=== PATIENT | female | born 1975 | race African-American/Black ===

== ENCOUNTER 2016-11-22 15:53 | Emergency (ER) | payer OTHER ==
[~2016-11-22] VITALS: Ht 165.1 cm; Wt 93.0 kg
[2016-11-22 16:01] VITALS: BP 149/89
[2016-11-22] MEDS ORDERED: NAPROXEN 500 MG TABLET PO STA (16:06)
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
[2016-11-22] MEDS ORDERED: TRAM-29 PO (17:00)
[2016-11-22] MEDS ORDERED: METH-38 PO (17:00)
== END 2016-11-22 17:05 | disposition home or self-care (01) ==
LOC: ER 15:53
DX: M54.5 Low back pain (principal); M25.512 Pain in left shoulder; Z88.2 Allergy status to sulfonamides; V49.49XA Driver injured in collision with other motor vehicles in traffic accident, initial encounter; Y93.89 Activity, other specified; Y99.8 Other external cause status; Y92.488 Other paved roadways as the place of occurrence of the external cause
CPT/HCPCS: 72100; 73030; 99284

== ENCOUNTER 2018-04-27 13:55 | Emergency (ER) | payer BC, OTHER ==
[~2018-04-27] VITALS: Ht 162.6 cm; Wt 114.3 kg
[~2018-04-27 13:55] MED LIST: METH-38 PO; TRAM-48 PO
--- NOTE | 2018-04-27 14:51 | PHYS DOC ---
Past Medical History Past Medical History: Anemia, Bronchitis Past Surgical History: Appendectomy Alcohol Use: None Drug Use: None Adult General Chief Complaint Chief Complaint: HEADACHE HPI HPI Patient is a 43 year old female who presents with left-sided headache. Patient reports she was recently diagnosed with migraine headaches. She states this headache started during the night. She was prescribed Fioricet and took one at about 4 AM this morning without relief. She reports nausea without vomiting. She denies any fever or chills. The pain seems to start at the base of the head on the left and radiates up to her forehead and down toward her shoulder. She denies any injury. She reports she is sensitive to light. Review of Systems Review of Systems Constitutional: Denies fever or chills [] Eyes: Reports photophobia. Denies blurred or double vision Respiratory: Denies cough or shortness of breath [] Cardiovascular: No additional information not addressed in HPI [] GI: Denies abdominal pain and vomiting. Reports nausea Musculoskeletal: Reports pain to left side of neck and shoulder Integument: Denies rash or skin lesions [] Neurologic: Reports left-sided headache. Denies focal weakness or sensory changes [] All other systems were reviewed and found to be within normal limits, except as documented in this note. Current Medications Current Medications Current Medications Medications (Trade) Dose Ordered Sig/[facility] Start Time Stop Time Status Last Admin Dose Admin Ketorolac Tromethamine (Toradol 15mg Vial) 15 mg 1X ONCE 04/27/18 15:15 04/27/18 15:16 DC 04/27/18 15:32 15 MG Lorazepam (Ativan) 2 mg 1X ONCE 04/27/18 15:15 04/27/18 15:16 DC 04/27/18 15:32 2 MG Metoclopramide HCl (Reglan Vial) 10 mg 1X ONCE 04/27/18 15:15 04/27/18 15:16 DC 04/27/18 15:31 10 MG Orphenadrine Citrate (Norflex) 30 mg 1X ONCE 04/27/18 15:15 04/27/18 15:16 DC 04/27/18 15:32 30 MG Sodium Chloride 1,000 ml @ 1,000 mls/hr 1X ONCE 04/27/18 15:15 04/27/18 16:14 DC 04/27/18 15:33 1,000 MLS/HR Allergies Allergies Allergies Coded Allergies Type Severity Reaction Last Updated Verified Sulfa (Sulfonamide Antibiotics) Allergy Unknown HIVES 11/22/16 Yes Physical Exam Physical Exam Constitutional: Well developed, well nourished, no acute distress, non-toxic appearance. [] HENT: Normocephalic, atraumatic Eyes: PERRLA, EOMI, conjunctiva normal, no discharge. [] Neck: Normal range of motion, no tenderness, supple, no stridor. [] Cardiovascular:Heart rate regular rhythm, no murmur [] Lungs & Thorax: Bilateral breath sounds clear to auscultation [] Skin: Warm, dry, no erythema, no rash. [] Neurologic: Alert and oriented X 3, normal motor function, normal sensory function, no focal deficits noted. [] Psychologic: Affect normal, judgement normal, mood normal. [] Current Patient Data Vital Signs Vital Signs Date Time Temp Pulse Resp B/P (MAP) Pulse Ox O2 Delivery O2 Flow Rate FiO2 04/27/18 16:38 76 16 96 04/27/18 14:39 97.9 162/100 (120) Room Air 97.9 EKG EKG [] Radiology/Procedures Radiology/Procedures [] Course & Med Decision Making Course & Med Decision Making Pertinent Labs and Imaging studies reviewed. (See chart for details) Patient feeling much better after IV medications. She would like to go home. Plan: Continue Fioricet, Flexeril Rx, follow-up with PCP, return precautions reviewed Staff Physician Addendum: I was working in the ER during the course of this patient's visit. I was available for consultation as needed, but I was not directly involved in the care of this patient. Dragon Disclaimer Dragon Disclaimer This electronic medical record was generated, in whole or in part, using a voice recognition dictation system. Departure Departure Impression: Primary Impression: Migraine Disposition: HOME, SELF-CARE Condition: IMPROVED Referrals: KHADIJAH GR MD (PCP) Patient Instructions: Migraine Headache Additional Instructions: You can try taking the fioricet and the cyclobenzaprine together at onset of migraine. Scripts Cyclobenzaprine Hcl (CYCLOBENZAPRINE HCL) 10 Mg Tablet 1 TAB PO TID PRN for HEADACHE, #20 TAB Prov: JONES INFANTE [employer] EXPERT 04/27/18 Problem Qualifiers Primary Impression: Migraine Migraine type: unspecified Status migrainosus presence: without status migrainosus Intractability: not intractable Qualified Codes: G43.909 - Migraine, unspecified, not intractable, without status migrainosus JONES INFANTE APRN Apr 27, 2018 14:51 KHURRAM SHANKAR MD Apr 28, 2018 06:27
[2018-04-27] MEDS: METOCLOPRAMIDE HCL 10 MG/2 ML VIAL. IV ONE (15:31)
[2018-04-27] MEDS: ORPHENADRINE CITRATE 60 MG/2 ML VIAL. IV ONE (15:32)
[2018-04-27] MEDS: KETOROLAC 15 MG/ML VIAL. IV ONE (15:32)
[2018-04-27] MEDS: IV NORMAL SALINE 1000ML BAG 1,000 ML IV ONE (15:33)
[2018-04-27] MEDS ORDERED: CYCL10TA2 PO (16:29)
[2018-04-27 16:38] VITALS: BP 147/84
== END 2018-04-27 16:47 | disposition home or self-care (01) ==
LOC: ER 13:55
DX: G43.909 Migraine, unspecified, not intractable, without status migrainosus (principal); Z88.2 Allergy status to sulfonamides
CPT/HCPCS: 96374; 96375; 99284; J1885; J2060; J2360; J2765; J7030

== ENCOUNTER 2018-09-19 10:07 | Inpatient (IN) | payer BC ==
[~2018-09-19] VITALS: Ht 162.6 cm; Wt 114.3 kg
[~2018-09-19 10:07] MED LIST changes: +CYCL10TA2 PO
[2018-09-19] MEDS ORDERED: diphenhydrAMINE 50 MG/ML VIAL IVP ONE ×2 (13:15→15:30)
[2018-09-19] MEDS ORDERED: IV NORMAL SALINE 1000ML BAG 1,000 ML IV ONE (13:15)
[2018-09-19] MEDS ORDERED: ACETAMINOPHEN 500 MG TABLET PO ONE (13:15)
[2018-09-19] MEDS ORDERED: predniSONE 10 MG TABLET PO ONE (13:15)
[2018-09-19 13:25] LABS: BASO % 0 % (0-3); EOS # 0.2 x10^3/uL (0.0-0.7); EOS % 2 % (0-3); HEMOGLOBIN 15.4 g/dL (12.0-15.5); LYMPH # 0.8 x10^3/uL (1.0-4.8); LYMPH % 7 % (24-48); MEAN CORPUSCULAR HEMOGLOBIN 30 pg (25-35); MEAN CORPUSCULAR HGB CONC 33 g/dL (31-37); MEAN CORPUSCULAR VOLUME 90 fL (79-100); MONO # 0.2 x10^3/uL (0.0-1.1); MONO % 2 % (0-9); NEUT # 10.6 x10^3uL (1.8-7.7); NEUT % 89 % (31-73); PLATELET COUNT 294 x10^3/uL (140-400); RED BLOOD COUNT 5.14 x10^6/uL (3.50-5.40); RED CELL DISTRIBUTION WIDTH 13.7 % (11.5-14.5); WHITE BLOOD COUNT 11.9 x10^3/uL (4.0-11.0)
[2018-09-19 13:36] LABS: CALCIUM 9.4 mg/dL (8.5-10.1); CREATININE 1.1 mg/dL (0.6-1.0); POTASSIUM 3.8 mmol/L (3.5-5.1)
--- NOTE | 2018-09-19 13:36 | PHYS DOC ---
Past Medical History Past Medical History: Anemia, Anxiety, Bronchitis, Migraines Past Surgical History: Appendectomy, Hysterectomy Alcohol Use: Rarely Drug Use: None Adult General Chief Complaint Chief Complaint: INSECT BITE HPI HPI 43-year-old female presents to ER via POV with complaints of 2 sores on her left upper leg. Patient reports she noticed dose on Wednesday with the area becoming itchy. She reports symptoms have worsened and she developed swelling and upper extremities with redness on her chest, upper extremities, and lower extremities. Patient reports she has had fever and generalized fatigue. She denies any urinary symptoms. Patient denies finding insect although had concerns for possible spider bite. Patient denies any chest pain, palpitations, shortness of air, or throat pain/swelling. Patient denies taking any over-the- counter medications. She denies recent travel, flu like illness, or new lotions/ soaps/foods. She denies V/D but has been feeling nauseated as sxs worsened. On arrival patient's heart rate is 120 to 130s with temperature 100.1. Review of Systems Review of Systems Constitutional: Reports chills/fever and generalized fatigue Eyes: Denies change in visual acuity, redness, or eye pain [] HENT: Denies sore throat/swelling or difficulty swallowing Respiratory: Denies cough or shortness of breath [] Cardiovascular: Denies CP/palpitations GI: Denies abdominal pain, vomiting, bloody stools or diarrhea. Reports intermittent nausea : Denies urinary sxs- has had hyster. Musculoskeletal: Denies back/neck pain or joint pain [] Integument: Reports redness on chest/extremities and 2 sores on rt upper leg Neurologic: Denies headache, focal weakness or sensory changes [] All other systems were reviewed and found to be within normal limits, except as documented in this note. Current Medications Current Medications Current Medications Medications (Trade) Dose Ordered Sig/Preethi Start Time Stop Time Status Last Admin Dose Admin Acetaminophen (Tylenol) 1,000 mg 1X ONCE 09/19/18 13:15 09/19/18 13:21 DC 09/19/18 13:36 1,000 MG Diphenhydramine HCl (Benadryl) 25 mg 1X ONCE 09/19/18 15:30 09/19/18 15:31 DC 09/19/18 16:25 25 MG Famotidine (Pepcid Vial) 40 mg 1X ONCE 09/19/18 15:30 09/19/18 15:31 DC 09/19/18 16:25 40 MG Ibuprofen (Motrin) 600 mg 1X ONCE 09/19/18 15:30 09/19/18 15:31 DC 09/19/18 16:24 600 MG Prednisone (Prednisone) 50 mg 1X ONCE 09/19/18 13:15 09/19/18 13:21 DC 09/19/18 13:36 50 MG Sodium Chloride 1,000 ml @ 1,000 mls/hr 1X ONCE 09/19/18 13:15 09/19/18 14:14 DC 09/19/18 13:36 1,000 MLS/HR Allergies Allergies Allergies Coded Allergies Type Severity Reaction Last Updated Verified Sulfa (Sulfonamide Antibiotics) Allergy Unknown HIVES 11/22/16 Yes Physical Exam Physical Exam Constitutional: Well developed, well nourished, no acute distress, non-toxic appearance. Fatigued appearance HENT: Normocephalic, atraumatic, bilateral ears normal, oropharynx moist- no pharyngeal swelling/erythema- uvula midline, no oral exudates, nose normal. [] Eyes: Pupils equal, conjunctiva normal, no discharge. [] Neck: Normal range of motion, no tenderness, supple, no stridor/gross adenopathy Cardiovascular: Tachycardic heart rate regular rhythm, no murmur [] Lungs & Thorax: Bilateral breath sounds clear to auscultation. Resp. equal/ nonlabored Abdomen: Bowel sounds normal, soft, no tenderness Skin: Warm, dry- redness on chest/upper and lower extremities. Lt anterior upper leg with blister type sores- increased warmth around site- no palp. induration/fluctuation. No drainage. Area is tender on palp. Back: No tenderness, no CVA tenderness. [] Extremities: No tenderness, no cyanosis, no clubbing, ROM intact, swelling bilat. hands- pt's sister reports she noticed her hands to be swollen and red in color this morning. [employer] Truck [employer] equal bilat. 2+ radial and dorsalis pedis/ posterior tibial Neurologic: Alert and oriented X 3, normal motor function, normal sensory function, no focal deficits noted. [] Psychologic: Affect normal, judgement normal, mood normal. [] Current Patient Data Vital Signs Vital Signs Date Time Temp Pulse Resp B/P (MAP) Pulse Ox O2 Delivery O2 Flow Rate FiO2 09/19/18 16:48 102 16 131/75 (93) 99 Room Air 09/19/18 16:18 99.3 99.3 Lab Values Laboratory Tests Test 09/19/18 13:00 White Blood Count 11.9 x10^3/uL (4.0-11.0) H Red Blood Count 5.14 x10^6/uL (3.50-5.40) Hemoglobin 15.4 g/dL (12.0-15.5) Hematocrit 46.0 % (36.0-47.0) Mean Corpuscular Volume 90 fL (79-100) Mean Corpuscular Hemoglobin 30 pg (25-35) Mean Corpuscular Hemoglobin Concent 33 g/dL (31-37) Red Cell Distribution Width 13.7 % (11.5-14.5) Platelet Count 294 x10^3/uL (140-400) Neutrophils (%) (Auto) 89 % (31-73) H Lymphocytes (%) (Auto) 7 % (24-48) L Monocytes (%) (Auto) 2 % (0-9) Eosinophils (%) (Auto) 2 % (0-3) Basophils (%) (Auto) 0 % (0-3) Neutrophils # (Auto) 10.6 x10^3uL (1.8-7.7) H Lymphocytes # (Auto) 0.8 x10^3/uL (1.0-4.8) L Monocytes # (Auto) 0.2 x10^3/uL (0.0-1.1) Eosinophils # (Auto) 0.2 x10^3/uL (0.0-0.7) Basophils # (Auto) 0.0 x10^3/uL (0.0-0.2) Segmented Neutrophils % 80 % (35-66) H Band Neutrophils % 11 % (0-9) H Lymphocytes % 5 % (24-48) L Monocytes % 1 % (0-10) Eosinophils % 3 % (0-5) Platelet Estimate Adequate (ADEQUATE) Erythrocyte Sedimentation Rate 31 (0-25) H Sodium Level 134 mmol/L (136-145) L Potassium Level 3.8 mmol/L (3.5-5.1) Chloride Level 98 mmol/L (98-107) Carbon Dioxide Level 26 mmol/L (21-32) Anion Gap 10 (6-14) Blood Urea Nitrogen 9 mg/dL (7-20) Creatinine 1.1 mg/dL (0.6-1.0) H Estimated GFR (Cockcroft-Gault) 65.0 Glucose Level 106 mg/dL (70-99) H Calcium Level 9.4 mg/dL (8.5-10.1) Laboratory Tests 09/19/18 13:00 Laboratory Tests 09/19/18 13:00 EKG EKG [] Radiology/Procedures Radiology/Procedures [] Course & Med Decision Making Course & Med Decision Making Pertinent Labs reviewed. (See chart for details) 1500: Pt reports she is feeling worse- temp. at 101.3 HR 120s. On re-exam no pharyngeal swelling/erythema- lung sounds clear. No pooling of secretions. Will provide Ibuprofen for fever and additional antihistamines. 1625: On reevaluation patient reports she is feeling better following treatments received. RN at bedside is just administering additional medication. Patient's heart rate improved to 103. Temperature 99.7. She is denying any shortness of air, throat pain or swelling, or chest tightness.Redness in extremities/chest has improved. Pharyngeal re-eval with no swelling/erythema- uvula midline. Discussed test results with WBCs 11.9 and 11 bands. Pt was given dose of Prednisone, Benedryl, tylenol, and IV flds. 1705: On re-eval. pt has HR 106- afebrile at this time. She has had some improvement in redness in upper/lower extremities- bilat. lower extremities are still warm to touch. On re-exam blister sites on lt upper anterior leg- she continues to have warmth surrounding site with probable cellulitis. Pt continues to feel fatigued. Discussed home discharge- pt has concerns regarding ongoing sxs and her fatigue. Will discuss pt's case with hospitalist and admit to their services for further care/monitoring. Lactic acid added to labs- pt was given IV fld bolus. Will start pt on IV Clindamycin while in the ER. Pt remains fatigued in appearance- nontoxic and is A&Ox3 without lethargy. 1735: Spoke with Dr. Elkins, hospitalist and discussed pt's case and admit plan. Pt will be admitted to hospitalist services for further care. Dragon Disclaimer Dragon Disclaimer This electronic medical record was generated, in whole or in part, using a voice recognition dictation system. Departure Departure Impression: Primary Impression: Left leg cellulitis Disposition: 09 ADMITTED INPATIENT Admitting Physician: Carri Elkins Condition: STABLE Referrals: KHADIJAH GR MD (PCP) FRANCK DONALD APRN Sep 19, 2018 13:36
[2018-09-19] MEDS ORDERED: IBUPROFEN 600 MG TABLET. PO ONE (15:30)
[2018-09-19] MEDS ORDERED: FAMOTIDINE 20 MG/2 ML VIAL IVP ONE (15:30)
[2018-09-19] MEDS ORDERED: ACETAMINOPHEN 325 MG TABLET. PO PRN (17:45)
[2018-09-19] MEDS ORDERED: CLINDAMYCIN 600MG PREMIX 50 ML IV ONE (17:45)
[2018-09-19] MEDS ORDERED: IBUPROFEN 600 MG TABLET. PO PRN (17:45)
[2018-09-19] MEDS ORDERED: CYCLOBENZAPRINE 10 MG TABLET. PO PRN (17:45)
[2018-09-19 17:53] LABS: % BANDS 11 % (0-9); % EOS 3 % (0-5); % LYMPHS 5 % (24-48); % MONOS 1 % (0-10); % SEGS 80 % (35-66); PLT ESTIMATE ADEQUATE (ADEQUATE)
[2018-09-19] MEDS: traMADol 50 MG TABLET PO SCH ×2 (18:12→23:01)
[2018-09-19] MEDS ORDERED: ALBUTEROL SULFATE 2.5 MG/3 ML NEBU. NEB PRN (18:15)
--- NOTE | 2018-09-19 18:22 | PDOC1 ---
History and Physical Date of Admission Date of Admission DATE: 09/19/18 TIME: 18:15 Identification/Chief Complaint Chief Complaint Bilateral red legs Source Source: Caregiver, Chart review, Patient History of Present Illness History of Present Illness 43-year-old female with a BMI 43.3, PCP Dr. Tena, only takes 2 medications at home Paxil and albuterol, bilateral red legs, red, mildly hot, mildly swollen , no open lesions. Thought she was bitten by a spider bite 3 days ago, cant see the puncture pearson though. Tachycardic 120-130 heart rate sinus, with a temperature 101. WBC 11.9, admitted with sepsis and for the cellulitis or redness of bilateral legs. Got steroid, clindamycin, and Solu- Medrol at ER Agreeable to be admitted Nondiabetic Never happened before Past Medical History Pulmonary: Asthma, Bronchitis Psych: Depression Past Surgical History Past Surgical History: No pertinent history Family History Family History: Hypertension Social History Smoke: No ALCOHOL: none Drugs: None Current Problem List Problem List Problems Medical Problems: (1) Allergic reaction Status: Acute (2) Contact dermatitis Status: Acute Current Medications Current Medications Current Medications Prednisone (Prednisone) 50 mg 1X ONCE PO Last administered on 09/19/18at 13:36 ; Start 09/19/18 at 13:15; Stop 09/19/18 at 13:21; Status DC Diphenhydramine HCl (Benadryl) 12.5 mg 1X ONCE IVP Last administered on at 13:36; Start 09/19/18 at 13:15; Stop 09/19/18 at 13:21; Status DC Sodium Chloride 1,000 ml @ 1,000 mls/hr 1X ONCE IV Last administered on at 13:36; Start 09/19/18 at 13:15; Stop 09/19/18 at 14:14; Status DC Acetaminophen (Tylenol) 1,000 mg 1X ONCE PO Last administered on 09/19/18at 13: 36; Start 09/19/18 at 13:15; Stop 09/19/18 at 13:21; Status DC Ibuprofen (Motrin) 600 mg 1X ONCE PO Last administered on 09/19/18at 16:24; Start 09/19/18 at 15:30; Stop 09/19/18 at 15:31; Status DC Famotidine (Pepcid Vial) 40 mg 1X ONCE IVP Last administered on 09/19/18at 16: 25; Start 09/19/18 at 15:30; Stop 09/19/18 at 15:31; Status DC Diphenhydramine HCl (Benadryl) 25 mg 1X ONCE IVP Last administered on at 16:25; Start 09/19/18 at 15:30; Stop 09/19/18 at 15:31; Status DC Cyclobenzaprine HCl (Flexeril) 10 mg PRN TID PRN PO HEADACHE; Start 09/19/18 at 17:45 Methocarbamol (Robaxin) 750 mg TID PO ; Start 09/19/18 at 21:00 Tramadol HCl (Ultram) 50 mg Q6HRS PO Last administered on 09/19/18at 18:12; Start 09/19/18 at 18:00 Clindamycin Phosphate 50 ml @ 100 mls/hr 1X ONCE IV Last administered on 09/19at 18:13; Start 09/19/18 at 17:45; Stop 09/19/18 at 18:14; Status DC Acetaminophen (Tylenol) 650 mg PRN Q4HRS PRN PO FEVER; Start 09/19/18 at 17:45 ; Stop 09/20/18 at 17:44 Acetaminophen/ Hydrocodone Bitart (Lortab 5/325) 1 tab PRN Q4HRS PRN PO PAIN; Start 09/19/18 at 17:45 Ibuprofen (Motrin) 600 mg PRN Q6HRS PRN PO FEVER; Start 09/19/18 at 17:45 Active Scripts Active Cyclobenzaprine Hcl 10 Mg Tablet 1 Tab PO TID PRN Ultram (Tramadol Hcl) 50 Mg Tablet 1 Tab PO Q6HRS Robaxin-750 (Methocarbamol) 750 Mg Tablet 1 Tab PO TID Allergies Allergies: Coded Allergies: Sulfa (Sulfonamide Antibiotics) (Verified Allergy, Unknown, HIVES, 11/22/16 ) ROS Review of System as per history of present illness, the rest of ROS 14 point negative Physical Exam General: Alert, Oriented X3, Cooperative, No acute distress HEENT: Atraumatic, PERRLA Lungs: Clear to auscultation, Normal air movement Heart: S1S2, RRR, no thrills, no rubs Cardiovascular: S1, S2 Breasts: Normal, Rt breast nml w/o mass, Lt breast nml w/o mass, Nipples normal Abdomen: Normal bowel sounds, Soft, No tenderness, No hepatosplenomegaly, No masses Rectal Exam: not examined Extremities: No clubbing, No cyanosis, No edema, Normal pulses, No tenderness/ swelling Skin: Other (bilateral legs are mildly warm to touch, appreciable redness despite her skin color but no open lesions, small blister) Neuro: Normal gait Psych/Mental Status: Mental status NL, Mood NL Vitals Vitals Vital Signs Date Time Temp Pulse Resp B/P (MAP) Pulse Ox O2 Delivery O2 Flow Rate FiO2 09/19/18 18:12 18 100 Room Air 09/19/18 16:18 99.3 94 102/55 (71) 99.3 Labs Labs Laboratory Tests Test 09/19/18 13:00 09/19/18 17:30 White Blood Count 11.9 x10^3/uL (4.0-11.0) Red Blood Count 5.14 x10^6/uL (3.50-5.40) Hemoglobin 15.4 g/dL (12.0-15.5) Hematocrit 46.0 % (36.0-47.0) Mean Corpuscular Volume 90 fL (79-100) Mean Corpuscular Hemoglobin 30 pg (25-35) Mean Corpuscular Hemoglobin Concent 33 g/dL (31-37) Red Cell Distribution Width 13.7 % (11.5-14.5) Platelet Count 294 x10^3/uL (140-400) Neutrophils (%) (Auto) 89 % (31-73) Lymphocytes (%) (Auto) 7 % (24-48) Monocytes (%) (Auto) 2 % (0-9) Eosinophils (%) (Auto) 2 % (0-3) Basophils (%) (Auto) 0 % (0-3) Neutrophils # (Auto) 10.6 x10^3uL (1.8-7.7) Lymphocytes # (Auto) 0.8 x10^3/uL (1.0-4.8) Monocytes # (Auto) 0.2 x10^3/uL (0.0-1.1) Eosinophils # (Auto) 0.2 x10^3/uL (0.0-0.7) Basophils # (Auto) 0.0 x10^3/uL (0.0-0.2) Sodium Level 134 mmol/L (136-145) Potassium Level 3.8 mmol/L (3.5-5.1) Chloride Level 98 mmol/L (98-107) Carbon Dioxide Level 26 mmol/L (21-32) Anion Gap 10 (6-14) Blood Urea Nitrogen 9 mg/dL (7-20) Creatinine 1.1 mg/dL (0.6-1.0) Estimated GFR (Cockcroft-Gault) 65.0 Glucose Level 106 mg/dL (70-99) Calcium Level 9.4 mg/dL (8.5-10.1) Lactic Acid Level 2.3 mmol/L (0.4-2.0) Laboratory Tests Test 09/19/18 13:00 09/19/18 17:30 White Blood Count 11.9 x10^3/uL (4.0-11.0) Red Blood Count 5.14 x10^6/uL (3.50-5.40) Hemoglobin 15.4 g/dL (12.0-15.5) Hematocrit 46.0 % (36.0-47.0) Mean Corpuscular Volume 90 fL (79-100) Mean Corpuscular Hemoglobin 30 pg (25-35) Mean Corpuscular Hemoglobin Concent 33 g/dL (31-37) Red Cell Distribution Width 13.7 % (11.5-14.5) Platelet Count 294 x10^3/uL (140-400) Neutrophils (%) (Auto) 89 % (31-73) Lymphocytes (%) (Auto) 7 % (24-48) Monocytes (%) (Auto) 2 % (0-9) Eosinophils (%) (Auto) 2 % (0-3) Basophils (%) (Auto) 0 % (0-3) Neutrophils # (Auto) 10.6 x10^3uL (1.8-7.7) Lymphocytes # (Auto) 0.8 x10^3/uL (1.0-4.8) Monocytes # (Auto) 0.2 x10^3/uL (0.0-1.1) Eosinophils # (Auto) 0.2 x10^3/uL (0.0-0.7) Basophils # (Auto) 0.0 x10^3/uL (0.0-0.2) Sodium Level 134 mmol/L (136-145) Potassium Level 3.8 mmol/L (3.5-5.1) Chloride Level 98 mmol/L (98-107) Carbon Dioxide Level 26 mmol/L (21-32) Anion Gap 10 (6-14) Blood Urea Nitrogen 9 mg/dL (7-20) Creatinine 1.1 mg/dL (0.6-1.0) Estimated GFR (Cockcroft-Gault) 65.0 Glucose Level 106 mg/dL (70-99) Calcium Level 9.4 mg/dL (8.5-10.1) Lactic Acid Level 2.3 mmol/L (0.4-2.0) VTE Prophylaxis Ordered VTE Prophylaxis Devices: Yes VTE Pharmacological Prophylaxi: Yes Assessment/Plan Assessment/Plan BILateral leg dermatitis, unlikely cellulitis as subQ tissue seem to be okay - this is all redness that is superficial - no known inciting factor, clinda, benadryl, steroid, PPI while on high dose steroid Obesity Asthma stable, intermittent Depression NOS PLAN: Steroid, clinda, benadryl Dc once redness better NOt taking robaxin anymore BENJI AKINS MD Sep 19, 2018 18:22
[2018-09-19 19:10] VITALS: BP 114/57
[2018-09-19] MEDS: HYDROcodone/APAP 5/325MG 1 TAB TABLET PO PRN (20:16)
[2018-09-19] MEDS: diphenhydrAMINE 50 MG/ML VIAL IVP SCH (20:17)
[2018-09-19] MEDS: FAMOTIDINE 20 MG/2 ML VIAL IVP SCH (20:18)
[2018-09-19] MEDS ORDERED: METHOCARBAMOL 750 MG TABLET PO SCH (21:00)
[2018-09-19] MEDS: methylPREDNISolone SOD SUCC PF 40 MG/ML VIAL. IV SCH (21:22)
[2018-09-19] MEDS ORDERED: ALBU2.5V8 INH (21:57)
[2018-09-19] MEDS ORDERED: CODE1CAP8 PO (21:57)
[2018-09-19] MEDS ORDERED: PARO30TA45 PO (21:57)
[2018-09-19] MEDS ORDERED: ALBUTEROL SULFATE 2.5 MG/3 ML NEBU. INH PRN (22:15)
[2018-09-19] MEDS ORDERED: BUTALB/APAP/CAFEIN 50/325/40MG TABLET. PO PRN (22:15)
[2018-09-19] MEDS: ZOLPIDEM 5 MG TABLET. PO PRN (23:01)
[2018-09-19 23:15] VITALS: BP 108/67
[2018-09-20] VITALS (7 sets, daily range): BP systolic 108–133; BP diastolic 60–81
[2018-09-20] MEDS: CLINDAMYCIN 600MG PREMIX 50 ML IV SCH ×3 (01:02→17:28)
[2018-09-20] MEDS: traMADol 50 MG TABLET PO SCH ×4 (05:02→23:11)
[2018-09-20] MEDS: methylPREDNISolone SOD SUCC PF 40 MG/ML VIAL. IV SCH ×3 (05:03→23:10)
[2018-09-20 05:04] LABS: BASO % 0 % (0-3); EOS % 0 % (0-3); HEMATOCRIT 38.7 % (36.0-47.0); HEMOGLOBIN 12.7 g/dL (12.0-15.5); LYMPH # 0.7 x10^3/uL (1.0-4.8); LYMPH % 6 % (24-48); MEAN CORPUSCULAR HEMOGLOBIN 30 pg (25-35); MEAN CORPUSCULAR HGB CONC 33 g/dL (31-37); MEAN CORPUSCULAR VOLUME 91 fL (79-100); MONO # 0.1 x10^3/uL (0.0-1.1); MONO % 1 % (0-9); NEUT # 11.8 x10^3uL (1.8-7.7); NEUT % 93 % (31-73); PLATELET COUNT 232 x10^3/uL (140-400); RED BLOOD COUNT 4.26 x10^6/uL (3.50-5.40); RED CELL DISTRIBUTION WIDTH 13.6 % (11.5-14.5); WHITE BLOOD COUNT 12.8 x10^3/uL (4.0-11.0)
[2018-09-20] MEDS: HYDROcodone/APAP 5/325MG 1 TAB TABLET PO PRN ×2 (05:48→20:06)
[2018-09-20 06:22] LABS: CALCIUM 9.1 mg/dL (8.5-10.1); GFR 72.5; POTASSIUM 3.6 mmol/L (3.5-5.1)
[2018-09-20] MEDS: diphenhydrAMINE 50 MG/ML VIAL IVP SCH ×3 (08:22→20:06)
[2018-09-20] MEDS: FAMOTIDINE 20 MG/2 ML VIAL IVP SCH ×2 (08:22→20:07)
[2018-09-20] MEDS: PARoxetine 10 MG TABLET PO SCH (08:23)
[2018-09-20] MEDS ORDERED: PARoxetine 10 MG TABLET PO SCH (09:00)
--- NOTE | 2018-09-20 09:02 | PDOC ---
PROGRESS NOTES History of Present Illness History of Present Illness Assessment/Plan Assessment/Plan BILateral leg dermatitis, CELLULITIS CHEST and abd wall, superficial blistering left upper medial leg Obesity Asthma stable, intermittent Depression NOS PLAN: Steroid, clinda, benadryl ID consult Vitals Vitals Vital Signs Date Time Temp Pulse Resp B/P (MAP) Pulse Ox O2 Delivery O2 Flow Rate FiO2 09/20/18 07:28 100 Room Air 09/20/18 07:15 97.3 75 20 122/60 (80) 97.3 Physical Exam General: Alert, Oriented X3, Cooperative, No acute distress Heart: Regular rate, Normal S1 Lungs: Clear Abdomen: Normal bowel sounds, Soft, No tenderness, No hepatosplenomegaly, No masses Extremities: No clubbing, No cyanosis, No edema, Normal pulses, No tenderness/ swelling Skin: Other (bilateral legs are mildly warm to touch, appreciable redness despite her skin color but no open lesions, small blister) Labs LABS Laboratory Tests Test 09/19/18 13:00 09/19/18 17:30 09/20/18 04:05 White Blood Count 11.9 x10^3/uL (4.0-11.0) 12.8 x10^3/uL (4.0-11.0) Red Blood Count 5.14 x10^6/uL (3.50-5.40) 4.26 x10^6/uL (3.50-5.40) Hemoglobin 15.4 g/dL (12.0-15.5) 12.7 g/dL (12.0-15.5) Hematocrit 46.0 % (36.0-47.0) 38.7 % (36.0-47.0) Mean Corpuscular Volume 90 fL (79-100) 91 fL (79-100) Mean Corpuscular Hemoglobin 30 pg (25-35) 30 pg (25-35) Mean Corpuscular Hemoglobin Concent 33 g/dL (31-37) 33 g/dL (31-37) Red Cell Distribution Width 13.7 % (11.5-14.5) 13.6 % (11.5-14.5) Platelet Count 294 x10^3/uL (140-400) 232 x10^3/uL (140-400) Neutrophils (%) (Auto) 89 % (31-73) 93 % (31-73) Lymphocytes (%) (Auto) 7 % (24-48) 6 % (24-48) Monocytes (%) (Auto) 2 % (0-9) 1 % (0-9) Eosinophils (%) (Auto) 2 % (0-3) 0 % (0-3) Basophils (%) (Auto) 0 % (0-3) 0 % (0-3) Neutrophils # (Auto) 10.6 x10^3uL (1.8-7.7) 11.8 x10^3uL (1.8-7.7) Lymphocytes # (Auto) 0.8 x10^3/uL (1.0-4.8) 0.7 x10^3/uL (1.0-4.8) Monocytes # (Auto) 0.2 x10^3/uL (0.0-1.1) 0.1 x10^3/uL (0.0-1.1) Eosinophils # (Auto) 0.2 x10^3/uL (0.0-0.7) 0.0 x10^3/uL (0.0-0.7) Basophils # (Auto) 0.0 x10^3/uL (0.0-0.2) 0.0 x10^3/uL (0.0-0.2) Segmented Neutrophils % 80 % (35-66) Band Neutrophils % 11 % (0-9) Lymphocytes % 5 % (24-48) Monocytes % 1 % (0-10) Eosinophils % 3 % (0-5) Platelet Estimate Adequate (ADEQUATE) Erythrocyte Sedimentation Rate 31 (0-25) Sodium Level 134 mmol/L (136-145) 139 mmol/L (136-145) Potassium Level 3.8 mmol/L (3.5-5.1) 3.6 mmol/L (3.5-5.1) Chloride Level 98 mmol/L (98-107) 103 mmol/L (98-107) Carbon Dioxide Level 26 mmol/L (21-32) 24 mmol/L (21-32) Anion Gap 10 (6-14) 12 (6-14) Blood Urea Nitrogen 9 mg/dL (7-20) 10 mg/dL (7-20) Creatinine 1.1 mg/dL (0.6-1.0) 1.0 mg/dL (0.6-1.0) Estimated GFR (Cockcroft-Gault) 65.0 72.5 Glucose Level 106 mg/dL (70-99) 162 mg/dL (70-99) Calcium Level 9.4 mg/dL (8.5-10.1) 9.1 mg/dL (8.5-10.1) Lactic Acid Level 2.3 mmol/L (0.4-2.0) Assessment and Plan Assessmemt and Plan Problems Medical Problems: (1) Allergic reaction Status: Acute (2) Contact dermatitis Status: Acute Comment Review of Relevant I have reviewed the following items marcell (where applicable) has been applied. Labs Laboratory Tests Test 09/19/18 13:00 09/19/18 17:30 09/20/18 04:05 White Blood Count 11.9 x10^3/uL (4.0-11.0) 12.8 x10^3/uL (4.0-11.0) Red Blood Count 5.14 x10^6/uL (3.50-5.40) 4.26 x10^6/uL (3.50-5.40) Hemoglobin 15.4 g/dL (12.0-15.5) 12.7 g/dL (12.0-15.5) Hematocrit 46.0 % (36.0-47.0) 38.7 % (36.0-47.0) Mean Corpuscular Volume 90 fL (79-100) 91 fL (79-100) Mean Corpuscular Hemoglobin 30 pg (25-35) 30 pg (25-35) Mean Corpuscular Hemoglobin Concent 33 g/dL (31-37) 33 g/dL (31-37) Red Cell Distribution Width 13.7 % (11.5-14.5) 13.6 % (11.5-14.5) Platelet Count 294 x10^3/uL (140-400) 232 x10^3/uL (140-400) Neutrophils (%) (Auto) 89 % (31-73) 93 % (31-73) Lymphocytes (%) (Auto) 7 % (24-48) 6 % (24-48) Monocytes (%) (Auto) 2 % (0-9) 1 % (0-9) Eosinophils (%) (Auto) 2 % (0-3) 0 % (0-3) Basophils (%) (Auto) 0 % (0-3) 0 % (0-3) Neutrophils # (Auto) 10.6 x10^3uL (1.8-7.7) 11.8 x10^3uL (1.8-7.7) Lymphocytes # (Auto) 0.8 x10^3/uL (1.0-4.8) 0.7 x10^3/uL (1.0-4.8) Monocytes # (Auto) 0.2 x10^3/uL (0.0-1.1) 0.1 x10^3/uL (0.0-1.1) Eosinophils # (Auto) 0.2 x10^3/uL (0.0-0.7) 0.0 x10^3/uL (0.0-0.7) Basophils # (Auto) 0.0 x10^3/uL (0.0-0.2) 0.0 x10^3/uL (0.0-0.2) Segmented Neutrophils % 80 % (35-66) Band Neutrophils % 11 % (0-9) Lymphocytes % 5 % (24-48) Monocytes % 1 % (0-10) Eosinophils % 3 % (0-5) Platelet Estimate Adequate (ADEQUATE) Erythrocyte Sedimentation Rate 31 (0-25) Sodium Level 134 mmol/L (136-145) 139 mmol/L (136-145) Potassium Level 3.8 mmol/L (3.5-5.1) 3.6 mmol/L (3.5-5.1) Chloride Level 98 mmol/L (98-107) 103 mmol/L (98-107) Carbon Dioxide Level 26 mmol/L (21-32) 24 mmol/L (21-32) Anion Gap 10 (6-14) 12 (6-14) Blood Urea Nitrogen 9 mg/dL (7-20) 10 mg/dL (7-20) Creatinine 1.1 mg/dL (0.6-1.0) 1.0 mg/dL (0.6-1.0) Estimated GFR (Cockcroft-Gault) 65.0 72.5 Glucose Level 106 mg/dL (70-99) 162 mg/dL (70-99) Calcium Level 9.4 mg/dL (8.5-10.1) 9.1 mg/dL (8.5-10.1) Lactic Acid Level 2.3 mmol/L (0.4-2.0) Laboratory Tests Test 09/19/18 13:00 09/19/18 17:30 09/20/18 04:05 White Blood Count 11.9 x10^3/uL (4.0-11.0) 12.8 x10^3/uL (4.0-11.0) Red Blood Count 5.14 x10^6/uL (3.50-5.40) 4.26 x10^6/uL (3.50-5.40) Hemoglobin 15.4 g/dL (12.0-15.5) 12.7 g/dL (12.0-15.5) Hematocrit 46.0 % (36.0-47.0) 38.7 % (36.0-47.0) Mean Corpuscular Volume 90 fL (79-100) 91 fL (79-100) Mean Corpuscular Hemoglobin 30 pg (25-35) 30 pg (25-35) Mean Corpuscular Hemoglobin Concent 33 g/dL (31-37) 33 g/dL (31-37) Red Cell Distribution Width 13.7 % (11.5-14.5) 13.6 % (11.5-14.5) Platelet Count 294 x10^3/uL (140-400) 232 x10^3/uL (140-400) Neutrophils (%) (Auto) 89 % (31-73) 93 % (31-73) Lymphocytes (%) (Auto) 7 % (24-48) 6 % (24-48) Monocytes (%) (Auto) 2 % (0-9) 1 % (0-9) Eosinophils (%) (Auto) 2 % (0-3) 0 % (0-3) Basophils (%) (Auto) 0 % (0-3) 0 % (0-3) Neutrophils # (Auto) 10.6 x10^3uL (1.8-7.7) 11.8 x10^3uL (1.8-7.7) Lymphocytes # (Auto) 0.8 x10^3/uL (1.0-4.8) 0.7 x10^3/uL (1.0-4.8) Monocytes # (Auto) 0.2 x10^3/uL (0.0-1.1) 0.1 x10^3/uL (0.0-1.1) Eosinophils # (Auto) 0.2 x10^3/uL (0.0-0.7) 0.0 x10^3/uL (0.0-0.7) Basophils # (Auto) 0.0 x10^3/uL (0.0-0.2) 0.0 x10^3/uL (0.0-0.2) Segmented Neutrophils % 80 % (35-66) Band Neutrophils % 11 % (0-9) Lymphocytes % 5 % (24-48) Monocytes % 1 % (0-10) Eosinophils % 3 % (0-5) Platelet Estimate Adequate (ADEQUATE) Erythrocyte Sedimentation Rate 31 (0-25) Sodium Level 134 mmol/L (136-145) 139 mmol/L (136-145) Potassium Level 3.8 mmol/L (3.5-5.1) 3.6 mmol/L (3.5-5.1) Chloride Level 98 mmol/L (98-107) 103 mmol/L (98-107) Carbon Dioxide Level 26 mmol/L (21-32) 24 mmol/L (21-32) Anion Gap 10 (6-14) 12 (6-14) Blood Urea Nitrogen 9 mg/dL (7-20) 10 mg/dL (7-20) Creatinine 1.1 mg/dL (0.6-1.0) 1.0 mg/dL (0.6-1.0) Estimated GFR (Cockcroft-Gault) 65.0 72.5 Glucose Level 106 mg/dL (70-99) 162 mg/dL (70-99) Calcium Level 9.4 mg/dL (8.5-10.1) 9.1 mg/dL (8.5-10.1) Lactic Acid Level 2.3 mmol/L (0.4-2.0) Medications Current Medications Prednisone (Prednisone) 50 mg 1X ONCE PO Last administered on 09/19/18at 13:36 ; Start 09/19/18 at 13:15; Stop 09/19/18 at 13:21; Status DC Diphenhydramine HCl (Benadryl) 12.5 mg 1X ONCE IVP Last administered on 13:36; Start 09/19/18 at 13:15; Stop 09/19/18 at 13:21; Status DC Sodium Chloride 1,000 ml @ 1,000 mls/hr 1X ONCE IV Last administered on 13:36; Start 09/19/18 at 13:15; Stop 09/19/18 at 14:14; Status DC Acetaminophen (Tylenol) 1,000 mg 1X ONCE PO Last administered on 09/19/18 13: 36; Start 09/19/18 at 13:15; Stop 09/19/18 at 13:21; Status DC Ibuprofen (Motrin) 600 mg 1X ONCE PO Last administered on 09/19/18 16:24; Start 09/19/18 at 15:30; Stop 09/19/18 at 15:31; Status DC Famotidine (Pepcid Vial) 40 mg 1X ONCE IVP Last administered on 09/19/18 16: 25; Start 09/19/18 at 15:30; Stop 09/19/18 at 15:31; Status DC Diphenhydramine HCl (Benadryl) 25 mg 1X ONCE IVP Last administered on 16:25; Start 09/19/18 at 15:30; Stop 09/19/18 at 15:31; Status DC Cyclobenzaprine HCl (Flexeril) 10 mg PRN TID PRN PO HEADACHE Last administered on 09/20/18 08:23; Start 09/19/18 at 17:45 Methocarbamol (Robaxin) 750 mg TID PO ; Start 09/19/18 at 21:00; Stop 09/19/18 at 21:00; Status DC Tramadol HCl (Ultram) 50 mg Q6HRS PO Last administered on 09/20/18at 05:02; Start 09/19/18 at 18:00 Clindamycin Phosphate 50 ml @ 100 mls/hr 1X ONCE IV Last administered on 09/19 18:13; Start 09/19/18 at 17:45; Stop 09/19/18 at 18:14; Status DC Acetaminophen (Tylenol) 650 mg PRN Q4HRS PRN PO FEVER; Start 09/19/18 at 17:45 ; Stop 09/20/18 at 17:44 Acetaminophen/ Hydrocodone Bitart (Lortab 5/325) 1 tab PRN Q4HRS PRN PO PAIN Last administered on 09/20/18at 05:48; Start 09/19/18 at 17:45 Ibuprofen (Motrin) 600 mg PRN Q6HRS PRN PO FEVER; Start 09/19/18 at 17:45 Clindamycin Phosphate 50 ml @ 100 mls/hr Q8H IV Last administered on at 01:02; Start 09/20/18 at 02:00 Diphenhydramine HCl (Benadryl) 25 mg TID IVP Last administered on 09/20/18at 08: 22; Start 09/19/18 at 21:00 Methylprednisolone Sodium Succinate (SOLU-Medrol 40MG VIAL) 40 mg Q8HRS IV Last administered on 09/20/18at 05:03; Start 09/19/18 at 22:00 Famotidine (Pepcid Vial) 20 mg BID IVP Last administered on 09/20/18at 08:22; Start 09/19/18 at 21:00 Albuterol Sulfate (Ventolin Neb Soln) 2.5 mg PRN Q4HRS PRN NEB SHORTNESS OF BREATH Last administered on 09/20/18at 07:28; Start 09/19/18 at 18:15 Paroxetine HCl (Paxil) 30 mg DAILY PO Last administered on 09/20/18at 08:23; Start 09/20/18 at 09:00 Acetaminophen/ Butalbital/ Caffeine (Fioricet) 1 tab PRN Q4HRS PRN PO MIGRAINE HEADACHE; Start 09/19/18 at 22:15 Paroxetine HCl (Paxil) 30 mg DAILY PO ; Start 09/20/18 at 09:00; Status Cancel Albuterol Sulfate (Ventolin Neb Soln) 8.5 mg PRN QID PRN INH SHORTNESS OF BREATH; Start 09/19/18 at 22:15; Status UNV Zolpidem Tartrate (Ambien) 5 mg PRN QHS PRN PO INSOMNIA Last administered on at 23:01; Start 09/19/18 at 22:15 Active Scripts Active Cyclobenzaprine Hcl 10 Mg Tablet 1 Tab PO TID PRN Ultram (Tramadol Hcl) 50 Mg Tablet 1 Tab PO Q6HRS Robaxin-750 (Methocarbamol) 750 Mg Tablet 1 Tab PO TID Reported Fiorinal-Cod 31-85-366-40 Cap (Codeine/Butalbital/Asa/Caffein) 1 Each Capsule 1 Each PO PRN Q4-6HRS PRN Proair Hfa Inhaler (Albuterol Sulfate) 8.5 Gm Hfa.aer.ad 1 Puff INH PRN QID PRN Paxil (Paroxetine Hcl) 30 Mg Tablet 1 Tab PO DAILY Vitals/I & O Vital Sign - Last 24 Hours 09/19/18 09/19/18 09/19/18 09/19/18 12:40 14:45 15:21 15:48 Temp 100.1 101.3 100.1 101.3 Pulse 125 118 113 96 Resp 16 18 16 B/P (MAP) 139/76 (97) 126/64 (84) 114/52 (72) Pulse Ox 99 97 97 O2 Delivery Room Air Room Air Room Air 09/19/18 09/19/18 09/19/18 09/19/18 16:18 16:48 17:18 17:48 Temp 99.3 99.3 Pulse 94 102 100 100 Resp 18 16 16 16 B/P (MAP) 102/55 (71) 131/75 (93) 129/84 (99) 135/77 (96) Pulse Ox 97 99 98 100 O2 Delivery Room Air Room Air Room Air Room Air 09/19/18 09/19/18 09/19/18 09/19/18 18:12 18:18 19:10 20:00 Temp 97.6 97.6 Pulse 98 95 Resp 18 16 18 B/P (MAP) 103/53 (70) 114/57 (76) Pulse Ox 100 100 96 O2 Delivery Room Air Room Air Room Air Room Air 09/19/18 09/19/18 09/19/18 09/19/18 20:16 20:30 21:16 23:01 Pulse Ox 98 O2 Delivery Room Air Room Air Room Air Room Air 09/19/18 09/20/18 09/20/18 09/20/18 23:15 03:20 05:02 05:48 Temp 97.4 97.4 97.4 97.4 Pulse 88 78 Resp 18 18 B/P (MAP) 108/67 (81) 125/79 (94) Pulse Ox 95 93 O2 Delivery Room Air Room Air Room Air Room Air 09/20/18 09/20/18 09/20/18 06:02 07:15 07:28 Temp 97.3 97.3 Pulse 75 Resp 20 B/P (MAP) 122/60 (80) Pulse Ox 96 100 O2 Delivery Room Air Room Air Room Air Intake and Output 09/19/18 09/19/18 09/20/18 15:00 23:00 07:00 Intake Total 1000 ml 150 ml Balance 1000 ml 150 ml JOSHUA BALBUENA MD Sep 20, 2018 09:02
[2018-09-20] MEDS ORDERED: IBUPROFEN 200 MG TABLET. PO PRN (13:03)
[2018-09-20] MEDS: ZOLPIDEM 5 MG TABLET. PO PRN (23:11)
[2018-09-21] MEDS: CLINDAMYCIN 600MG PREMIX 50 ML IV SCH (01:27)
[2018-09-21 03:41] VITALS: BP 109/69
[2018-09-21] MEDS: traMADol 50 MG TABLET PO SCH ×4 (05:27→22:03)
[2018-09-21] MEDS: methylPREDNISolone SOD SUCC PF 40 MG/ML VIAL. IV SCH ×3 (05:29→21:59)
[2018-09-21 06:01] LABS: BASO % 0 % (0-3); EOS # 0.1 x10^3/uL (0.0-0.7); EOS % 0 % (0-3); HEMOGLOBIN 12.7 g/dL (12.0-15.5); LYMPH # 1.2 x10^3/uL (1.0-4.8); LYMPH % 6 % (24-48); MEAN CORPUSCULAR HEMOGLOBIN 29 pg (25-35); MEAN CORPUSCULAR HGB CONC 33 g/dL (31-37); MEAN CORPUSCULAR VOLUME 90 fL (79-100); MONO # 0.4 x10^3/uL (0.0-1.1); MONO % 2 % (0-9); NEUT # 18.1 x10^3uL (1.8-7.7); NEUT % 91 % (31-73); PLATELET COUNT 271 x10^3/uL (140-400); RED BLOOD COUNT 4.32 x10^6/uL (3.50-5.40); RED CELL DISTRIBUTION WIDTH 13.8 % (11.5-14.5); WHITE BLOOD COUNT 19.9 x10^3/uL (4.0-11.0)
[2018-09-21 07:16] VITALS: BP 117/74
[2018-09-21] MEDS: FAMOTIDINE 20 MG/2 ML VIAL IVP SCH ×2 (08:40→20:53)
[2018-09-21] MEDS: diphenhydrAMINE 50 MG/ML VIAL IVP SCH ×3 (08:41→20:51)
[2018-09-21] MEDS: PARoxetine 10 MG TABLET PO SCH (08:41)
--- NOTE | 2018-09-21 09:10 | PDOC ---
PROGRESS NOTES History of Present Illness History of Present Illness Assessment/Plan Assessment/Plan BILateral leg dermatitis, CELLULITIS CHEST and abd wall, superficial blistering left upper medial leg Obesity Asthma stable, intermittent Depression NOS PLAN: Steroid, clinda, benadryl ID consult D/W DR BALDERAS, Concern for secondary syphilis, possible spider bite left upper thigh Vitals Vitals Vital Signs Date Time Temp Pulse Resp B/P (MAP) Pulse Ox O2 Delivery O2 Flow Rate FiO2 09/21/18 07:16 98.1 75 17 117/74 (88) 94 Room Air 98.1 Physical Exam General: Alert, Oriented X3, Cooperative, No acute distress Heart: Regular rate, Normal S1, No murmurs Lungs: Clear Abdomen: Normal bowel sounds, Soft, No tenderness, No hepatosplenomegaly, No masses Extremities: No clubbing, No cyanosis, No edema, Normal pulses, No tenderness/ swelling Skin: Other (bilateral legs are mildly warm to touch, appreciable redness despite her skin color but no open lesions, small blister left upper medial thigh) Labs LABS Laboratory Tests Test 09/21/18 05:07 White Blood Count 19.9 x10^3/uL (4.0-11.0) Red Blood Count 4.32 x10^6/uL (3.50-5.40) Hemoglobin 12.7 g/dL (12.0-15.5) Hematocrit 39.0 % (36.0-47.0) Mean Corpuscular Volume 90 fL (79-100) Mean Corpuscular Hemoglobin 29 pg (25-35) Mean Corpuscular Hemoglobin Concent 33 g/dL (31-37) Red Cell Distribution Width 13.8 % (11.5-14.5) Platelet Count 271 x10^3/uL (140-400) Neutrophils (%) (Auto) 91 % (31-73) Lymphocytes (%) (Auto) 6 % (24-48) Monocytes (%) (Auto) 2 % (0-9) Eosinophils (%) (Auto) 0 % (0-3) Basophils (%) (Auto) 0 % (0-3) Neutrophils # (Auto) 18.1 x10^3uL (1.8-7.7) Lymphocytes # (Auto) 1.2 x10^3/uL (1.0-4.8) Monocytes # (Auto) 0.4 x10^3/uL (0.0-1.1) Eosinophils # (Auto) 0.1 x10^3/uL (0.0-0.7) Basophils # (Auto) 0.0 x10^3/uL (0.0-0.2) Assessment and Plan Assessmemt and Plan Problems Medical Problems: (1) Allergic reaction Status: Acute (2) Contact dermatitis Status: Acute Comment Review of Relevant I have reviewed the following items marcell (where applicable) has been applied. Labs Laboratory Tests Test 09/19/18 13:00 09/19/18 17:30 09/20/18 04:05 09/21/18 05:07 White Blood Count 11.9 x10^3/uL (4.0-11.0) 12.8 x10^3/uL (4.0-11.0) 19.9 x10^3/uL (4.0-11.0) Red Blood Count 5.14 x10^6/uL (3.50-5.40) 4.26 x10^6/uL (3.50-5.40) 4.32 x10^6/uL (3.50-5.40) Hemoglobin 15.4 g/dL (12.0-15.5) 12.7 g/dL (12.0-15.5) 12.7 g/dL (12.0-15.5) Hematocrit 46.0 % (36.0-47.0) 38.7 % (36.0-47.0) 39.0 % (36.0-47.0) Mean Corpuscular Volume 90 fL (79-100) 91 fL (79-100) 90 fL (79-100) Mean Corpuscular Hemoglobin 30 pg (25-35) 30 pg (25-35) 29 pg (25-35) Mean Corpuscular Hemoglobin Concent 33 g/dL (31-37) 33 g/dL (31-37) 33 g/dL (31-37) Red Cell Distribution Width 13.7 % (11.5-14.5) 13.6 % (11.5-14.5) 13.8 % (11.5-14.5) Platelet Count 294 x10^3/uL (140-400) 232 x10^3/uL (140-400) 271 x10^3/uL (140-400) Neutrophils (%) (Auto) 89 % (31-73) 93 % (31-73) 91 % (31-73) Lymphocytes (%) (Auto) 7 % (24-48) 6 % (24-48) 6 % (24-48) Monocytes (%) (Auto) 2 % (0-9) 1 % (0-9) 2 % (0-9) Eosinophils (%) (Auto) 2 % (0-3) 0 % (0-3) 0 % (0-3) Basophils (%) (Auto) 0 % (0-3) 0 % (0-3) 0 % (0-3) Neutrophils # (Auto) 10.6 x10^3uL (1.8-7.7) 11.8 x10^3uL (1.8-7.7) 18.1 x10^3uL (1.8-7.7) Lymphocytes # (Auto) 0.8 x10^3/uL (1.0-4.8) 0.7 x10^3/uL (1.0-4.8) 1.2 x10^3/uL (1.0-4.8) Monocytes # (Auto) 0.2 x10^3/uL (0.0-1.1) 0.1 x10^3/uL (0.0-1.1) 0.4 x10^3/uL (0.0-1.1) Eosinophils # (Auto) 0.2 x10^3/uL (0.0-0.7) 0.0 x10^3/uL (0.0-0.7) 0.1 x10^3/uL (0.0-0.7) Basophils # (Auto) 0.0 x10^3/uL (0.0-0.2) 0.0 x10^3/uL (0.0-0.2) 0.0 x10^3/uL (0.0-0.2) Segmented Neutrophils % 80 % (35-66) Band Neutrophils % 11 % (0-9) Lymphocytes % 5 % (24-48) Monocytes % 1 % (0-10) Eosinophils % 3 % (0-5) Platelet Estimate Adequate (ADEQUATE) Erythrocyte Sedimentation Rate 31 (0-25) Sodium Level 134 mmol/L (136-145) 139 mmol/L (136-145) Potassium Level 3.8 mmol/L (3.5-5.1) 3.6 mmol/L (3.5-5.1) Chloride Level 98 mmol/L (98-107) 103 mmol/L (98-107) Carbon Dioxide Level 26 mmol/L (21-32) 24 mmol/L (21-32) Anion Gap 10 (6-14) 12 (6-14) Blood Urea Nitrogen 9 mg/dL (7-20) 10 mg/dL (7-20) Creatinine 1.1 mg/dL (0.6-1.0) 1.0 mg/dL (0.6-1.0) Estimated GFR (Cockcroft-Gault) 65.0 72.5 Glucose Level 106 mg/dL (70-99) 162 mg/dL (70-99) Calcium Level 9.4 mg/dL (8.5-10.1) 9.1 mg/dL (8.5-10.1) Lactic Acid Level 2.3 mmol/L (0.4-2.0) Anti-Streptolysin O Antibody 25.7 IU/mL (0.0-200.0) Laboratory Tests Test 09/21/18 05:07 White Blood Count 19.9 x10^3/uL (4.0-11.0) Red Blood Count 4.32 x10^6/uL (3.50-5.40) Hemoglobin 12.7 g/dL (12.0-15.5) Hematocrit 39.0 % (36.0-47.0) Mean Corpuscular Volume 90 fL (79-100) Mean Corpuscular Hemoglobin 29 pg (25-35) Mean Corpuscular Hemoglobin Concent 33 g/dL (31-37) Red Cell Distribution Width 13.8 % (11.5-14.5) Platelet Count 271 x10^3/uL (140-400) Neutrophils (%) (Auto) 91 % (31-73) Lymphocytes (%) (Auto) 6 % (24-48) Monocytes (%) (Auto) 2 % (0-9) Eosinophils (%) (Auto) 0 % (0-3) Basophils (%) (Auto) 0 % (0-3) Neutrophils # (Auto) 18.1 x10^3uL (1.8-7.7) Lymphocytes # (Auto) 1.2 x10^3/uL (1.0-4.8) Monocytes # (Auto) 0.4 x10^3/uL (0.0-1.1) Eosinophils # (Auto) 0.1 x10^3/uL (0.0-0.7) Basophils # (Auto) 0.0 x10^3/uL (0.0-0.2) Medications Current Medications Prednisone (Prednisone) 50 mg 1X ONCE PO Last administered on 09/19/18 13:36 ; Start 09/19/18 at 13:15; Stop 09/19/18 at 13:21; Status DC Diphenhydramine HCl (Benadryl) 12.5 mg 1X ONCE IVP Last administered on 13:36; Start 09/19/18 at 13:15; Stop 09/19/18 at 13:21; Status DC Sodium Chloride 1,000 ml @ 1,000 mls/hr 1X ONCE IV Last administered on 13:36; Start 09/19/18 at 13:15; Stop 09/19/18 at 14:14; Status DC Acetaminophen (Tylenol) 1,000 mg 1X ONCE PO Last administered on 09/19/18 13: 36; Start 09/19/18 at 13:15; Stop 09/19/18 at 13:21; Status DC Ibuprofen (Motrin) 600 mg 1X ONCE PO Last administered on 09/19/18 16:24; Start 09/19/18 at 15:30; Stop 09/19/18 at 15:31; Status DC Famotidine (Pepcid Vial) 40 mg 1X ONCE IVP Last administered on 09/19/18 16: 25; Start 09/19/18 at 15:30; Stop 09/19/18 at 15:31; Status DC Diphenhydramine HCl (Benadryl) 25 mg 1X ONCE IVP Last administered on 16:25; Start 09/19/18 at 15:30; Stop 09/19/18 at 15:31; Status DC Cyclobenzaprine HCl (Flexeril) 10 mg PRN TID PRN PO HEADACHE Last administered on 09/20/18 08:23; Start 09/19/18 at 17:45 Methocarbamol (Robaxin) 750 mg TID PO ; Start 09/19/18 at 21:00; Stop 09/19/18 at 21:00; Status DC Tramadol HCl (Ultram) 50 mg Q6HRS PO Last administered on 09/21/18 05:27; Start 09/19/18 at 18:00 Clindamycin Phosphate 50 ml @ 100 mls/hr 1X ONCE IV Last administered on 09/19at 18:13; Start 09/19/18 at 17:45; Stop 09/19/18 at 18:14; Status DC Acetaminophen (Tylenol) 650 mg PRN Q4HRS PRN PO FEVER; Start 09/19/18 at 17:45 ; Stop 09/20/18 at 16:41; Status DC Acetaminophen/ Hydrocodone Bitart (Lortab 5/325) 1 tab PRN Q4HRS PRN PO PAIN Last administered on 09/20/18at 20:06; Start 09/19/18 at 17:45 Ibuprofen (Motrin) 600 mg PRN Q6HRS PRN PO FEVER; Start 09/19/18 at 17:45; Stop 09/20/18 at 13:03; Status DC Clindamycin Phosphate 50 ml @ 100 mls/hr Q8H IV Last administered on at 01:27; Start 09/20/18 at 02:00 Diphenhydramine HCl (Benadryl) 25 mg TID IVP Last administered on 09/21/18at 08: 41; Start 09/19/18 at 21:00 Methylprednisolone Sodium Succinate (SOLU-Medrol 40MG VIAL) 40 mg Q8HRS IV Last administered on 09/21/18 05:29; Start 09/19/18 at 22:00 Famotidine (Pepcid Vial) 20 mg BID IVP Last administered on 09/21/18at 08:40; Start 09/19/18 at 21:00 Albuterol Sulfate (Ventolin Neb Soln) 2.5 mg PRN Q4HRS PRN NEB SHORTNESS OF BREATH Last administered on 09/20/18at 07:28; Start 09/19/18 at 18:15 Paroxetine HCl (Paxil) 30 mg DAILY PO Last administered on 09/21/18at 08:41; Start 09/20/18 at 09:00 Acetaminophen/ Butalbital/ Caffeine (Fioricet) 1 tab PRN Q4HRS PRN PO MIGRAINE HEADACHE; Start 09/19/18 at 22:15 Paroxetine HCl (Paxil) 30 mg DAILY PO ; Start 09/20/18 at 09:00; Status Cancel Albuterol Sulfate (Ventolin Neb Soln) 8.5 mg PRN QID PRN INH SHORTNESS OF BREATH; Start 09/19/18 at 22:15; Status UNV Zolpidem Tartrate (Ambien) 5 mg PRN QHS PRN PO INSOMNIA Last administered on at 23:11; Start 09/19/18 at 22:15 Ibuprofen (Motrin) 600 mg PRN Q6HRS PRN PO fever Last administered on at 17:35; Start 09/20/18 at 13:03 Active Scripts Active Cyclobenzaprine Hcl 10 Mg Tablet 1 Tab PO TID PRN Ultram (Tramadol Hcl) 50 Mg Tablet 1 Tab PO Q6HRS Robaxin-750 (Methocarbamol) 750 Mg Tablet 1 Tab PO TID Reported Fiorinal-Cod 59-32-375-40 Cap (Codeine/Butalbital/Asa/Caffein) 1 Each Capsule 1 Each PO PRN Q4-6HRS PRN Proair Hfa Inhaler (Albuterol Sulfate) 8.5 Gm Hfa.aer.ad 1 Puff INH PRN QID PRN Paxil (Paroxetine Hcl) 30 Mg Tablet 1 Tab PO DAILY Vitals/I & O Vital Sign - Last 24 Hours 09/20/18 09/20/18 09/20/18 09/20/18 11:14 15:05 19:51 20:00 Temp 98.0 97.8 97.7 98.0 97.8 97.7 Pulse 90 86 88 Resp 18 18 16 B/P (MAP) 119/68 (85) 108/60 (76) 122/78 (93) Pulse Ox 95 96 94 O2 Delivery Room Air Room Air Room Air Room Air 09/20/18 09/20/18 09/20/18 09/20/18 20:06 21:06 23:11 23:26 Temp 97.8 97.8 Pulse 78 Resp 16 B/P (MAP) 133/81 (98) Pulse Ox 95 O2 Delivery Room Air Room Air Room Air Room Air 09/21/18 09/21/18 09/21/18 09/21/18 03:41 05:27 06:27 07:16 Temp 97.9 98.1 97.9 98.1 Pulse 74 75 Resp 16 18 17 B/P (MAP) 109/69 (82) 117/74 (88) Pulse Ox 94 94 O2 Delivery Room Air Room Air Room Air Room Air Intake and Output 09/20/18 09/20/18 09/21/18 15:00 23:00 07:00 Intake Total 240 ml 660 ml 600 ml Balance 240 ml 660 ml 600 ml JOSHUA BALBUENA MD Sep 21, 2018 09:10
[2018-09-21 10:50] VITALS: BP 127/71
--- NOTE | 2018-09-21 11:34 | PDOC ---
Infectious Disease Note Vital Sign Vital Signs Vital Signs Date Time Temp Pulse Resp B/P (MAP) Pulse Ox O2 Delivery O2 Flow Rate FiO2 09/21/18 10:50 97.7 72 18 127/71 (89) 96 Room Air 97.7 Labs Lab Laboratory Tests Test 09/21/18 05:07 White Blood Count 19.9 x10^3/uL (4.0-11.0) Red Blood Count 4.32 x10^6/uL (3.50-5.40) Hemoglobin 12.7 g/dL (12.0-15.5) Hematocrit 39.0 % (36.0-47.0) Mean Corpuscular Volume 90 fL (79-100) Mean Corpuscular Hemoglobin 29 pg (25-35) Mean Corpuscular Hemoglobin Concent 33 g/dL (31-37) Red Cell Distribution Width 13.8 % (11.5-14.5) Platelet Count 271 x10^3/uL (140-400) Neutrophils (%) (Auto) 91 % (31-73) Lymphocytes (%) (Auto) 6 % (24-48) Monocytes (%) (Auto) 2 % (0-9) Eosinophils (%) (Auto) 0 % (0-3) Basophils (%) (Auto) 0 % (0-3) Neutrophils # (Auto) 18.1 x10^3uL (1.8-7.7) Lymphocytes # (Auto) 1.2 x10^3/uL (1.0-4.8) Monocytes # (Auto) 0.4 x10^3/uL (0.0-1.1) Eosinophils # (Auto) 0.1 x10^3/uL (0.0-0.7) Basophils # (Auto) 0.0 x10^3/uL (0.0-0.2) Objective Assessment Left upper thigh necrotic lesion, likely spider bite Rash all over including palms and soles, likely from spider bite though rule out syphilis Leukocytosis sec to steroids Plan Plan of Care d/c clinda check RPR check G6PD steroids GRACIE BALDERAS MD Sep 21, 2018 11:34
--- NOTE | 2018-09-21 15:02 | NUR ---
SW following pt for anticipated dc needs. Chart reviewed. Pt lives at home alone. No SW needs indicated at this time. will continue to evaluate needs.
[2018-09-21 15:14] VITALS: BP 114/72
[2018-09-21 19:50] VITALS: BP 135/91
[2018-09-21] MEDS ORDERED: FAMOTIDINE 20 MG/2 ML VIAL IVP SCH (21:00)
--- NOTE | 2018-09-21 21:29 | CONS ---
DATE OF CONSULTATION: 09/21/2018 REQUESTING PHYSICIAN: Dr. Benoit. REASON FOR CONSULTATION: Dermatitis. HISTORY OF PRESENT ILLNESS: This is a 43-year-old female who noticed a blister or necrotic area on the left thigh and then broke out in rash all over the body. The patient denies any bug bite or spider sting, but it is possible she says. The patient did have low grade fever. The patient went to her regular doctor and then ended up in the ER and admission. The patient denies any nausea, vomiting, diarrhea. Denies any chest pain, shortness of breath. Denies any other complaints. She does have rash on the hand and a rash all over the body and a black necrotic papule on the left upper thigh. The patient denies any headache, visual symptoms, shortness of breath, chest pain, urinary symptoms or bowel symptoms. The patient is currently on steroids and clindamycin. PAST MEDICAL HISTORY: Positive for anemia, anxiety disorder, migraines. Has had appendicectomy, hysterectomy. SOCIAL HISTORY: Negative for smoking, alcohol use or drug use. The patient is sexually active with 2 partners. She is not right now. ALLERGIES: LISTED ALLERGIC TO SULFA, CAUSE RASH. CURRENT MEDICATIONS: Reviewed. REVIEW OF SYSTEMS: As per HPI. All other systems reviewed are negative. PHYSICAL EXAMINATION: GENERAL: Alert, oriented female, not in distress. VITAL SIGNS: Stable, afebrile. HEENT: NAD. NECK: Supple, no JVP, no lymphadenopathy. LUNGS: Clear. HEART: S1, S2 regular. ABDOMEN: Benign. EXTREMITIES: No edema or cyanosis. SKIN: The patient does have a diffuse erythematous rash all over the body including palms and soles, does have a necrotic black blistery lesion on to the left thigh, one large one adjacent and another small one. There is slight induration in the surrounding area. NEUROLOGIC: The patient is neurologically alert, awake and appropriate. No focal neurologic deficit. LABORATORY DATA: White count is 19,000. BUN and creatinine is normal. ASO titer done 25.7. IMPRESSION: 1. Left upper thigh necrotic lesion likely spider bite. 2. Rash all over including palms and soles likely from spider bite toxin venom, although secondary syphilis can have this appearance. 3. Leukocytosis. 4. Asthma. RECOMMENDATION: We will discontinue clindamycin as it has no role in this situation. We will check RPR. We will check G6PD. Truly, for spider bite dapsone has a role, but we have to have G6PD done beforehand. We will continue steroids and supportive care. Thank you very much, Dr. Benoit, for giving me the opportunity to participate in this patient's care. GRACIE BALDERAS MD DR: JUAN/yuni JOB#: [id number] / [id number]
[2018-09-21] MEDS ORDERED: SENNOSIDES 8.6 MG TABLET PO PRN (21:30)
[2018-09-21] MEDS ORDERED: POLYETHYLENE GLYCOL 3350 17 GM PACKET. PO PRN (21:30)
[2018-09-21 23:45] VITALS: BP 120/73
[2018-09-22 03:45] VITALS: BP 125/75
[2018-09-22] MEDS: methylPREDNISolone SOD SUCC PF 40 MG/ML VIAL. IV SCH (05:46)
[2018-09-22] MEDS: traMADol 50 MG TABLET PO SCH ×2 (05:48→13:22)
[2018-09-22 07:30] VITALS: BP 153/90
[2018-09-22] MEDS: PARoxetine 10 MG TABLET PO SCH (09:29)
[2018-09-22] MEDS: FAMOTIDINE 20 MG/2 ML VIAL IVP SCH (09:30)
[2018-09-22] MEDS: diphenhydrAMINE 50 MG/ML VIAL IVP SCH (09:30)
[2018-09-22] MEDS: HYDROcodone/APAP 5/325MG 1 TAB TABLET PO PRN ×2 (09:31→14:28)
--- NOTE | 2018-09-22 10:42 | PDOC ---
PROGRESS NOTES History of Present Illness History of Present Illness discharge dx Assessment/Plan BILateral leg dermatitis, CELLULITIS CHEST and abd wall, superficial blistering left upper medial leg LIKELY spider bite rpr neg Obesity Asthma stable, intermittent Depression NOS PLAN: d/c Steroid, clinda, benadryl ID consult D/W DR BALDERAS, spider bite left upper thigh d/c planning 35 min Vitals Vitals Vital Signs Date Time Temp Pulse Resp B/P (MAP) Pulse Ox O2 Delivery O2 Flow Rate FiO2 09/22/18 09:31 18 Room Air 09/22/18 07:30 98.0 68 153/90 (111) 96 98.0 Physical Exam General: Alert, Oriented X3, Cooperative, No acute distress Heart: Regular rate, Normal S1, No murmurs Lungs: Clear Abdomen: Normal bowel sounds, Soft, No tenderness, No hepatosplenomegaly, No masses Extremities: No clubbing, No cyanosis, No edema, Normal pulses, No tenderness/ swelling Skin: Other (bilateral legs are mildly warm to touch, appreciable redness despite her skin color but no open lesions, small blister left upper medial thigh) Assessment and Plan Assessmemt and Plan Problems Medical Problems: (1) Allergic reaction Status: Acute (2) Contact dermatitis Status: Acute Comment Review of Relevant I have reviewed the following items marcell (where applicable) has been applied. Labs Laboratory Tests Test 09/21/18 05:07 White Blood Count 19.9 x10^3/uL (4.0-11.0) Red Blood Count 4.32 x10^6/uL (3.50-5.40) Hemoglobin 12.7 g/dL (12.0-15.5) Hematocrit 39.0 % (36.0-47.0) Mean Corpuscular Volume 90 fL (79-100) Mean Corpuscular Hemoglobin 29 pg (25-35) Mean Corpuscular Hemoglobin Concent 33 g/dL (31-37) Red Cell Distribution Width 13.8 % (11.5-14.5) Platelet Count 271 x10^3/uL (140-400) Neutrophils (%) (Auto) 91 % (31-73) Lymphocytes (%) (Auto) 6 % (24-48) Monocytes (%) (Auto) 2 % (0-9) Eosinophils (%) (Auto) 0 % (0-3) Basophils (%) (Auto) 0 % (0-3) Neutrophils # (Auto) 18.1 x10^3uL (1.8-7.7) Lymphocytes # (Auto) 1.2 x10^3/uL (1.0-4.8) Monocytes # (Auto) 0.4 x10^3/uL (0.0-1.1) Eosinophils # (Auto) 0.1 x10^3/uL (0.0-0.7) Basophils # (Auto) 0.0 x10^3/uL (0.0-0.2) Treponema pallidum Antibody Nonreactive (Nonreactive) Medications Current Medications Prednisone (Prednisone) 50 mg 1X ONCE PO Last administered on 09/19/18 13:36 ; Start 09/19/18 at 13:15; Stop 09/19/18 at 13:21; Status DC Diphenhydramine HCl (Benadryl) 12.5 mg 1X ONCE IVP Last administered on 13:36; Start 09/19/18 at 13:15; Stop 09/19/18 at 13:21; Status DC Sodium Chloride 1,000 ml @ 1,000 mls/hr 1X ONCE IV Last administered on 13:36; Start 09/19/18 at 13:15; Stop 09/19/18 at 14:14; Status DC Acetaminophen (Tylenol) 1,000 mg 1X ONCE PO Last administered on 09/19/18 13: 36; Start 09/19/18 at 13:15; Stop 09/19/18 at 13:21; Status DC Ibuprofen (Motrin) 600 mg 1X ONCE PO Last administered on 09/19/18 16:24; Start 09/19/18 at 15:30; Stop 09/19/18 at 15:31; Status DC Famotidine (Pepcid Vial) 40 mg 1X ONCE IVP Last administered on 09/19/18 16: 25; Start 09/19/18 at 15:30; Stop 09/19/18 at 15:31; Status DC Diphenhydramine HCl (Benadryl) 25 mg 1X ONCE IVP Last administered on 16:25; Start 09/19/18 at 15:30; Stop 09/19/18 at 15:31; Status DC Cyclobenzaprine HCl (Flexeril) 10 mg PRN TID PRN PO HEADACHE Last administered on 09/20/18at 08:23; Start 09/19/18 at 17:45 Methocarbamol (Robaxin) 750 mg TID PO ; Start 09/19/18 at 21:00; Stop 09/19/18 at 21:00; Status DC Tramadol HCl (Ultram) 50 mg Q6HRS PO Last administered on 09/21/18at 18:00; Start 09/19/18 at 18:00 Clindamycin Phosphate 50 ml @ 100 mls/hr 1X ONCE IV Last administered on 09/19 18:13; Start 09/19/18 at 17:45; Stop 09/19/18 at 18:14; Status DC Acetaminophen (Tylenol) 650 mg PRN Q4HRS PRN PO FEVER; Start 09/19/18 at 17:45 ; Stop 09/20/18 at 16:41; Status DC Acetaminophen/ Hydrocodone Bitart (Lortab 5/325) 1 tab PRN Q4HRS PRN PO PAIN Last administered on 09/22/18 09:31; Start 09/19/18 at 17:45 Ibuprofen (Motrin) 600 mg PRN Q6HRS PRN PO FEVER; Start 09/19/18 at 17:45; Stop 09/20/18 at 13:03; Status DC Clindamycin Phosphate 50 ml @ 100 mls/hr Q8H IV Last administered on 01:27; Start 09/20/18 at 02:00; Stop 09/21/18 at 11:31; Status DC Diphenhydramine HCl (Benadryl) 25 mg TID IVP Last administered on 09/22/18 09: 30; Start 09/19/18 at 21:00 Methylprednisolone Sodium Succinate (SOLU-Medrol 40MG VIAL) 40 mg Q8HRS IV Last administered on 09/22/18at 05:46; Start 09/19/18 at 22:00 Famotidine (Pepcid Vial) 20 mg BID IVP Last administered on 09/22/18 09:30; Start 09/19/18 at 21:00 Albuterol Sulfate (Ventolin Neb Soln) 2.5 mg PRN Q4HRS PRN NEB SHORTNESS OF BREATH Last administered on 09/20/18at 07:28; Start 09/19/18 at 18:15 Paroxetine HCl (Paxil) 30 mg DAILY PO Last administered on 09/22/18at 09:29; Start 09/20/18 at 09:00 Acetaminophen/ Butalbital/ Caffeine (Fioricet) 1 tab PRN Q4HRS PRN PO MIGRAINE HEADACHE; Start 09/19/18 at 22:15 Paroxetine HCl (Paxil) 30 mg DAILY PO ; Start 09/20/18 at 09:00; Status Cancel Albuterol Sulfate (Ventolin Neb Soln) 8.5 mg PRN QID PRN INH SHORTNESS OF BREATH; Start 09/19/18 at 22:15; Status UNV Zolpidem Tartrate (Ambien) 5 mg PRN QHS PRN PO INSOMNIA Last administered on at 23:11; Start 09/19/18 at 22:15 Ibuprofen (Motrin) 600 mg PRN Q6HRS PRN PO fever Last administered on at 17:35; Start 09/20/18 at 13:03 Famotidine (Pepcid Vial) 20 mg BID IVP ; Start 09/21/18 at 21:00; Status UNV Polyethylene Glycol (miraLAX PACKET) 17 gm PRN DAILY PRN PO CONSTIPATION 1ST CHOICE Last administered on 09/21/18at 21:58; Start 09/21/18 at 21:30 Sennosides (Senna) 17.2 mg PRN BID PRN PO CONSTIPATION 2ND CHOICE Last administered on 09/22/18at 09:41; Start 09/21/18 at 21:30 Active Scripts Active Cyclobenzaprine Hcl 10 Mg Tablet 1 Tab PO TID PRN Ultram (Tramadol Hcl) 50 Mg Tablet 1 Tab PO Q6HRS Robaxin-750 (Methocarbamol) 750 Mg Tablet 1 Tab PO TID Reported Fiorinal-Cod 22-39-306-40 Cap (Codeine/Butalbital/Asa/Caffein) 1 Each Capsule 1 Each PO PRN Q4-6HRS PRN Proair Hfa Inhaler (Albuterol Sulfate) 8.5 Gm Hfa.aer.ad 1 Puff INH PRN QID PRN Paxil (Paroxetine Hcl) 30 Mg Tablet 1 Tab PO DAILY Vitals/I & O Vital Sign - Last 24 Hours 09/21/18 09/21/18 09/21/18 09/21/18 10:50 12:30 15:14 15:30 Temp 97.7 97.5 97.7 97.5 Pulse 72 73 Resp 18 18 17 17 B/P (MAP) 127/71 (89) 114/72 (86) Pulse Ox 96 98 O2 Delivery Room Air Room Air Room Air Room Air 09/21/18 09/21/18 09/21/18 09/21/18 18:00 19:50 20:00 23:45 Temp 97.9 98.3 97.9 98.3 Pulse 65 67 Resp 18 18 18 B/P (MAP) 135/91 (106) 120/73 (89) Pulse Ox 96 95 O2 Delivery Room Air Room Air Room Air Room Air 09/22/18 09/22/18 09/22/18 03:45 07:30 09:31 Temp 98.1 98.0 98.1 98.0 Pulse 61 68 Resp 18 18 18 B/P (MAP) 125/75 (92) 153/90 (111) Pulse Ox 94 96 O2 Delivery Room Air Room Air Room Air Intake and Output 09/21/18 09/21/18 09/22/18 15:00 23:00 07:00 Intake Total 600 ml 500 ml 450 ml Balance 600 ml 500 ml 450 ml JOSHUA BALBUENA MD Sep 22, 2018 10:42
--- NOTE | 2018-09-22 11:10 | PDOC ---
Infectious Disease Note Subjective Subjective feeling much better ROS ROS no n/v/d/sob rash better Vital Sign Vital Signs Vital Signs Date Time Temp Pulse Resp B/P (MAP) Pulse Ox O2 Delivery O2 Flow Rate FiO2 09/22/18 09:31 18 Room Air 09/22/18 07:30 98.0 68 153/90 (111) 96 98.0 Physical Exam PHYSICAL EXAM GENERAL: Alert, oriented female, not in distress. VITAL SIGNS: Stable, afebrile. HEENT: NAD. NECK: Supple, no JVP, no lymphadenopathy. LUNGS: Clear. HEART: S1, S2 regular. ABDOMEN: Benign. EXTREMITIES: No edema or cyanosis. SKIN: The patient does have a diffuse erythematous rash all over the body including palms and soles, does have a necrotic black blistery lesion on to the left thigh, one large one adjacent and another small one. There is slight induration in the surrounding area. NEUROLOGIC: The patient is neurologically alert, awake and appropriate. No focal neurologic deficit. Objective Assessment Left upper thigh necrotic lesion, likely spider bite Rash all over including palms and soles, likely from spider bite though rule out syphilis Leukocytosis sec to steroids Plan Plan of Care RPR neg check G6PD d/c home ok, no need for any more steroids left thigh wound may develop in to ulcer, f/u with me in 7-10 days GRACIE BALDERAS MD Sep 22, 2018 11:10
[2018-09-22 11:25] VITALS: BP 123/64
--- NOTE | 2018-09-22 13:38 | PDOC3 ---
Discharge Summary Date of Admission: Sep 19, 2018 Date of Discharge: Sep 22, 2018 Follow-Up: 3-5 days Admitting Diagnosis comment: discharge dx Assessment/Plan BILateral leg dermatitis, CELLULITIS CHEST and abd wall, superficial blistering left upper medial leg LIKELY spider bite rpr neg Obesity Asthma stable, intermittent Depression NOS PLAN: d/c Steroid, clinda, benadryl ID consult D/W DR BALDERAS, spider bite left upper thigh d/c planning 35 min Vitals Vitals Vital Signs Date Time Temp Pulse Resp B/P (MAP) Pulse Ox O2 Delivery O2 Flow Rate FiO2 09/22/18 09:31 18 Room Air 09/22/18 07:30 98.0 68 153/90 (111) 96 98.0 Physical Exam General: Alert, Oriented X3, Cooperative, No acute distress Heart: Regular rate, Normal S1, No murmurs Lungs: Clear Abdomen: Normal bowel sounds, Soft, No tenderness, No hepatosplenomegaly, No masses Extremities: No clubbing, No cyanosis, No edema, Normal pulses, No tenderness/ swelling Skin: Other (bilateral legs are mildly warm to touch, appreciable redness despite her skin color but no open lesions, small blister left upper medial thigh) Assessment and Plan Assessmemt and Plan Problems Medical Problems: (1) Allergic reaction FINAL DIAGNOSIS Problems Medical Problems: (1) Allergic reaction Status: Acute (2) Contact dermatitis Status: Acute Brief Hospital Course Ms. Asher is a 43 old [sex] who presented with [ diffuse erythema] CONDITION AT DISCHARGE: Improved Discharge Medications Current Medications Prednisone (Prednisone) 50 mg 1X ONCE PO Last administered on 09/19/18at 13:36 ; Start 09/19/18 at 13:15; Stop 09/19/18 at 13:21; Status DC Diphenhydramine HCl (Benadryl) 12.5 mg 1X ONCE IVP Last administered on 13:36; Start 09/19/18 at 13:15; Stop 09/19/18 at 13:21; Status DC Sodium Chloride 1,000 ml @ 1,000 mls/hr 1X ONCE IV Last administered on 13:36; Start 09/19/18 at 13:15; Stop 09/19/18 at 14:14; Status DC Acetaminophen (Tylenol) 1,000 mg 1X ONCE PO Last administered on 09/19/18 13: 36; Start 09/19/18 at 13:15; Stop 09/19/18 at 13:21; Status DC Ibuprofen (Motrin) 600 mg 1X ONCE PO Last administered on 09/19/18 16:24; Start 09/19/18 at 15:30; Stop 09/19/18 at 15:31; Status DC Famotidine (Pepcid Vial) 40 mg 1X ONCE IVP Last administered on 09/19/18 16: 25; Start 09/19/18 at 15:30; Stop 09/19/18 at 15:31; Status DC Diphenhydramine HCl (Benadryl) 25 mg 1X ONCE IVP Last administered on 16:25; Start 09/19/18 at 15:30; Stop 09/19/18 at 15:31; Status DC Cyclobenzaprine HCl (Flexeril) 10 mg PRN TID PRN PO HEADACHE Last administered on 09/20/18 08:23; Start 09/19/18 at 17:45 Methocarbamol (Robaxin) 750 mg TID PO ; Start 09/19/18 at 21:00; Stop 09/19/18 at 21:00; Status DC Tramadol HCl (Ultram) 50 mg Q6HRS PO Last administered on 09/22/18 13:22; Start 09/19/18 at 18:00 Clindamycin Phosphate 50 ml @ 100 mls/hr 1X ONCE IV Last administered on 09/19 18:13; Start 09/19/18 at 17:45; Stop 09/19/18 at 18:14; Status DC Acetaminophen (Tylenol) 650 mg PRN Q4HRS PRN PO FEVER; Start 09/19/18 at 17:45 ; Stop 09/20/18 at 16:41; Status DC Acetaminophen/ Hydrocodone Bitart (Lortab 5/325) 1 tab PRN Q4HRS PRN PO PAIN Last administered on 09/22/18 09:31; Start 09/19/18 at 17:45 Ibuprofen (Motrin) 600 mg PRN Q6HRS PRN PO FEVER; Start 09/19/18 at 17:45; Stop 09/20/18 at 13:03; Status DC Clindamycin Phosphate 50 ml @ 100 mls/hr Q8H IV Last administered on at 01:27; Start 09/20/18 at 02:00; Stop 09/21/18 at 11:31; Status DC Diphenhydramine HCl (Benadryl) 25 mg TID IVP Last administered on 09/22/18at 09: 30; Start 09/19/18 at 21:00 Methylprednisolone Sodium Succinate (SOLU-Medrol 40MG VIAL) 40 mg Q8HRS IV Last administered on 09/22/18at 05:46; Start 09/19/18 at 22:00 Famotidine (Pepcid Vial) 20 mg BID IVP Last administered on 09/22/18 09:30; Start 09/19/18 at 21:00 Albuterol Sulfate (Ventolin Neb Soln) 2.5 mg PRN Q4HRS PRN NEB SHORTNESS OF BREATH Last administered on 09/20/18 07:28; Start 09/19/18 at 18:15 Paroxetine HCl (Paxil) 30 mg DAILY PO Last administered on 09/22/18at 09:29; Start 09/20/18 at 09:00 Acetaminophen/ Butalbital/ Caffeine (Fioricet) 1 tab PRN Q4HRS PRN PO MIGRAINE HEADACHE; Start 09/19/18 at 22:15 Paroxetine HCl (Paxil) 30 mg DAILY PO ; Start 09/20/18 at 09:00; Status Cancel Albuterol Sulfate (Ventolin Neb Soln) 8.5 mg PRN QID PRN INH SHORTNESS OF BREATH; Start 09/19/18 at 22:15; Status UNV Zolpidem Tartrate (Ambien) 5 mg PRN QHS PRN PO INSOMNIA Last administered on at 23:11; Start 09/19/18 at 22:15 Ibuprofen (Motrin) 600 mg PRN Q6HRS PRN PO fever Last administered on at 17:35; Start 09/20/18 at 13:03 Famotidine (Pepcid Vial) 20 mg BID IVP ; Start 09/21/18 at 21:00; Status UNV Polyethylene Glycol (miraLAX PACKET) 17 gm PRN DAILY PRN PO CONSTIPATION 1ST CHOICE Last administered on 09/21/18at 21:58; Start 09/21/18 at 21:30 Sennosides (Senna) 17.2 mg PRN BID PRN PO CONSTIPATION 2ND CHOICE Last administered on 09/22/18at 09:41; Start 09/21/18 at 21:30 Active Scripts Active Cyclobenzaprine Hcl 10 Mg Tablet 1 Tab PO TID PRN Ultram (Tramadol Hcl) 50 Mg Tablet 1 Tab PO Q6HRS Robaxin-750 (Methocarbamol) 750 Mg Tablet 1 Tab PO TID Reported Fiorinal-Cod [id number] Cap (Codeine/Butalbital/Asa/Caffein) 1 Each Capsule 1 Each PO PRN Q4-6HRS PRN Proair Hfa Inhaler (Albuterol Sulfate) 8.5 Gm Hfa.aer.ad 1 Puff INH PRN QID PRN Paxil (Paroxetine Hcl) 30 Mg Tablet 1 Tab PO DAILY Vital Signs Vital Signs Date Time Temp Pulse Resp B/P (MAP) Pulse Ox O2 Delivery O2 Flow Rate FiO2 09/22/18 13:22 18 Room Air 09/22/18 11:25 98.4 66 123/64 (83) 96 98.4 Labs Laboratory Tests Test 09/21/18 05:07 White Blood Count 19.9 x10^3/uL (4.0-11.0) Red Blood Count 4.32 x10^6/uL (3.50-5.40) Hemoglobin 12.7 g/dL (12.0-15.5) Hematocrit 39.0 % (36.0-47.0) Mean Corpuscular Volume 90 fL (79-100) Mean Corpuscular Hemoglobin 29 pg (25-35) Mean Corpuscular Hemoglobin Concent 33 g/dL (31-37) Red Cell Distribution Width 13.8 % (11.5-14.5) Platelet Count 271 x10^3/uL (140-400) Neutrophils (%) (Auto) 91 % (31-73) Lymphocytes (%) (Auto) 6 % (24-48) Monocytes (%) (Auto) 2 % (0-9) Eosinophils (%) (Auto) 0 % (0-3) Basophils (%) (Auto) 0 % (0-3) Neutrophils # (Auto) 18.1 x10^3uL (1.8-7.7) Lymphocytes # (Auto) 1.2 x10^3/uL (1.0-4.8) Monocytes # (Auto) 0.4 x10^3/uL (0.0-1.1) Eosinophils # (Auto) 0.1 x10^3/uL (0.0-0.7) Basophils # (Auto) 0.0 x10^3/uL (0.0-0.2) Treponema pallidum Antibody Nonreactive (Nonreactive) Allergies Allergies Coded Allergies Type Severity Reaction Last Updated Verified Sulfa (Sulfonamide Antibiotics) Allergy Intermediate HIVES 09/21/18 Yes Disposition/Orders: D/C to Home Patient Instructions d./c planning 35 min JOSHUA BALBUENA MD Sep 22, 2018 13:38
[2018-09-22] MEDS ORDERED: POLY17PO28 PO (13:39)
--- NOTE | 2018-09-22 13:40 | DISCH ---
DISCHARGE INSTRUCTIONS Condition on Discharge Condition on Discharge: Stable Activity After Discharge Activity Instructions for Disc: Activity as tolerated Lifting Instructions after Dis: No heavy lifting, No pulling or pushing Exercise Instruction after Dis: Walk 10 min, 3 x per day Driving Instructions after Dis: Do not drive Diet after Discharge Diet after Discharge: Regular Checks after Discharge Checks after discharge: Check blood press - daily Contacting the DRVeronica after DC Call your doctor for: If your condition worsens JOSHUA BALBUENA MD Sep 22, 2018 13:40
--- NOTE | 2018-09-22 15:05 | NUR ---
Pt discharged to home with sister. Discussed diet, activity, follow up and medications. Verbalized understanding.
== END 2018-09-22 15:10 | disposition home or self-care (01) | DRG 603 ==
LOC: ER 10:07 → 6 SOUTH 17:15
PROVIDERS: ADMIT Internal Medicine; ATTEND Internal Medicine
DX: L03.116 Cellulitis of left lower limb (principal); Z68.41 Body mass index [BMI] 40.0-44.9, adult; L25.9 Unspecified contact dermatitis, unspecified cause; J45.909 Unspecified asthma, uncomplicated; F32.9 Major depressive disorder, single episode, unspecified; E66.9 Obesity, unspecified; F41.9 Anxiety disorder, unspecified; G43.909 Migraine, unspecified, not intractable, without status migrainosus; S70.322A Blister (nonthermal), left thigh, initial encounter; W57.XXXA Bitten or stung by nonvenomous insect and other nonvenomous arthropods, initial encounter; Z82.49 Family history of ischemic heart disease and other diseases of the circulatory system; Z90.49 Acquired absence of other specified parts of digestive tract; Z90.710 Acquired absence of both cervix and uterus; Z88.2 Allergy status to sulfonamides; Y93.89 Activity, other specified; Y92.89 Other specified places as the place of occurrence of the external cause; Y99.8 Other external cause status
CPT/HCPCS: 36415; 80048; 82955; 83605; 85007; 85025; 85651; 86060; 86592; 94640; 94760; 96361; 96365; 96375; 96376; J1200; J2920; J3490; J7030; J7512; J7613; 99285-25

== ENCOUNTER 2019-08-08 13:23 | Emergency (ER) | payer BC ==
[~2019-08-08 13:23] MED LIST changes: +ALBU2.5V8 INH; +CODE1CAP8 PO; +PARO30TA45 PO; +POLY17PO28 PO
[2019-08-08] MEDS ORDERED: LIDOCAINE 2% 20 ML VIAL. IJ STA (14:27)
[2019-08-08 14:35] LABS: BILIRUBIN,URINE NEGATIVE (NEG); CLARITY,URINE CLEAR; COLOR,URINE YELLOW; NITRITE,URINE NEGATIVE (NEG); PROTEIN,URINE NEGATIVE (NEG-TRACE)
[2019-08-08 14:43] LABS: BACTERIA,URINE MANY /HPF (0-FEW); SQUAMOUS EPITHELIAL CELL,UR MANY /LPF; WBC,URINE 20-40 /HPF (0-4)
[2019-08-08 14:44] LABS: TRICHOMONAS,URINE PRESENT
--- NOTE | 2019-08-08 14:44 | PHYS DOC ---
Past Medical History Past Medical History: Anemia, Anxiety, Bronchitis, Migraines (DARIN NEWBERRY APRN) Past Surgical History: Appendectomy, Hysterectomy (DARIN NEWBERRY APRN) Alcohol Use: None Drug Use: None (DARIN NEWBERRY APRN) Adult General Chief Complaint Chief Complaint: HEADACHE HPI HPI Patient is a 44 year old female who presents with headache, nausea, vomiting, light sensitivity this been ongoing 2 days. She states she gets migraines about 2-3 times a month. The patient also states she's been having dysuria this been ongoing for last several days. The patient rates her pain as 10 in severity and sharp. The pain is located in the left side of the frontal part of the head. Denies other symptoms. Complete ROS were reviewed and found to be within normal limits, except as documented in the HPI (DARIN NEWBERRY APRN) Current Medications Current Medications Current Medications Medications (Trade) Dose Ordered Sig/Preethi Start Time Stop Time Status Last Admin Dose Admin Diphenhydramine HCl (Benadryl) 50 mg 1X STAT 08/08/19 14:49 08/08/19 14:52 DC 08/08/19 15:11 50 MG Ketorolac Tromethamine (Toradol 15mg Vial) 10 mg 1X STAT 08/08/19 15:06 08/08/19 15:10 DC 08/08/19 15:17 10 MG Lidocaine HCl 20 ml 1X STAT 08/08/19 14:27 08/08/19 14:29 DC 08/08/19 14:42 20 ML Prochlorperazine Edisylate (Compazine) 10 mg 1X ONCE 08/08/19 15:15 08/08/19 15:16 DC 08/08/19 15:17 10 MG (KHURRAM SHANKAR MD) Allergies Allergies Allergies Coded Allergies Type Severity Reaction Last Updated Verified Sulfa (Sulfonamide Antibiotics) Allergy Intermediate HIVES 09/21/18 Yes (KHURRAM SHANKAR MD) Physical Exam Physical Exam Constitutional: Well developed, well nourished, no acute distress, non-toxic appearance. [] HENT: Normocephalic, atraumatic, bilateral external ears normal, oropharynx moist, no oral exudates, nose normal. [] Eyes: PERRLA, EOMI, conjunctiva normal, no discharge. [] Neck: Normal range of motion, no tenderness, supple, no stridor. [] Cardiovascular:Heart rate regular rhythm, no murmur [] Lungs & Thorax: Bilateral breath sounds clear to auscultation [] Skin: Warm, dry, no erythema, no rash. [] Back: No tenderness, no CVA tenderness. [] Extremities: No tenderness, no cyanosis, no clubbing, ROM intact, no edema. [] Neurologic: Alert and oriented X 3, normal motor function, normal sensory function, no focal deficits noted. [] Psychologic: Affect normal, judgement normal, mood normal. [] (DARIN NEWBERRY APRN) Current Patient Data Vital Signs Vital Signs Date Time Temp Pulse Resp B/P (MAP) Pulse Ox O2 Delivery O2 Flow Rate FiO2 08/08/19 16:13 59 18 08/08/19 15:43 98 08/08/19 13:37 98.3 159/90 (113) Room Air 98.3 (KHURRAM SHANKAR MD) Lab Values Laboratory Tests Test 08/08/19 13:37 Urine Collection Type Unknown Urine Color Yellow Urine Clarity Clear Urine pH 6.0 Urine Specific Logan 1.020 Urine Protein Negative mg/dL (NEG-TRACE) Urine Glucose (UA) Negative mg/dL (NEG) Urine Ketones (Stick) Negative mg/dL (NEG) Urine Blood Negative (NEG) Urine Nitrite Negative (NEG) Urine Bilirubin Negative (NEG) Urine Urobilinogen Dipstick 1.0 mg/dL (0.2 mg/dL) Urine Leukocyte Esterase Moderate (NEG) Urine RBC 1-2 /HPF (0-2) Urine WBC 20-40 /HPF (0-4) Urine Squamous Epithelial Cells Many /LPF Urine Bacteria Many /HPF (0-FEW) Urine Mucus Marked /LPF Urine Trichomonas Present (KHURRAM SHANKAR MD) Lab Values Laboratory Tests Test 08/08/19 13:37 Urine Collection Type Unknown Urine Color Yellow Urine Clarity Clear Urine pH 6.0 Urine Specific Logan 1.020 Urine Protein Negative mg/dL (NEG-TRACE) Urine Glucose (UA) Negative mg/dL (NEG) Urine Ketones (Stick) Negative mg/dL (NEG) Urine Blood Negative (NEG) Urine Nitrite Negative (NEG) Urine Bilirubin Negative (NEG) Urine Urobilinogen Dipstick 1.0 mg/dL (0.2 mg/dL) Urine Leukocyte Esterase Moderate (NEG) Urine RBC 1-2 /HPF (0-2) Urine WBC 20-40 /HPF (0-4) Urine Squamous Epithelial Cells Many /LPF Urine Bacteria Many /HPF (0-FEW) Urine Mucus Marked /LPF Urine Trichomonas Present (DARIN NEWBERRY APRN) EKG EKG [] (DARIN NEWBERRY APRN) Radiology/Procedures Radiology/Procedures [] (DARIN NEWBERRY APRN) Course & Med Decision Making Course & Med Decision Making Pertinent Labs and Imaging studies reviewed. (See chart for details) [] Will get UA/Preg. Will try intranasal lidocaine to resolve headache. UA shows leukocytes. Headache is better after cocktail will d/c home. (DARIN NEWBERRY APRN) Course & Med Decision Making Staff Physician Addendum: I was working in the ER during the course of this patient's visit. I was available for consultation as needed, but I was not directly involved in the care of this patient. (KHURRAM SHANKAR MD) Dragon Disclaimer Dragon Disclaimer This electronic medical record was generated, in whole or in part, using a voice recognition dictation system. (DARIN NEWBERRY APRN) Departure Departure Impression: Primary Impression: Migraine headache Additional Impression: Urinary tract infection Disposition: 01 HOME, SELF-CARE Condition: STABLE Referrals: DALY PORTER MD (PCP) Patient Instructions: Migraine Headache, Urinary Tract Infection Additional Instructions: Thank you for visiting [facility]. We appreciate you trusting us with your care. If any additional problems come up don't hesitate to return to visit us. Please follow up with your primary care provider so they can plan additional care if needed and know about the problem that you had. If symptoms worsen come back to the Emergency Department. Any concerning symptoms that start such as chest pain, shortness of air, weakness or numbness on one side of the body, running high fevers or any other concerning symptoms return to the ER. You have been prescribed an antibiotic today to help fight your infection. Please take all of the antibiotic as directed. If after 48 hours the infection is not improving, please return for more care. If the infection worsens, return to ER for additional care. Scripts Cephalexin (KEFLEX) 500 Mg Capsule 1 CAP PO BID for 7 Days, #14 CAP 0 Refills Prov: DARIN NEWBERRY APRN 08/08/19 Problem Qualifiers Primary Impression: Migraine headache Migraine type: unspecified Status migrainosus presence: without status migrainosus Intractability: not intractable Qualified Codes: G43.909 - Migraine, unspecified, not intractable, without status migrainosus Additional Impression: Urinary tract infection Urinary tract infection type: acute cystitis Hematuria presence: without hematuria Qualified Codes: N30.00 - Acute cystitis without hematuria DARIN NEWBERRY APRN Aug 08, 2019 14:44 KHURRAM SHANKAR MD Aug 09, 2019 07:58
[2019-08-08] MEDS ORDERED: diphenhydrAMINE 50 MG/ML VIAL IVP STA (14:49)
[2019-08-08] MEDS ORDERED: KETOROLAC 15 MG/ML VIAL. IV STA (15:06)
[2019-08-08] MEDS ORDERED: PROCHLORPERAZINE 10 MG/2 ML VIAL. IV ONE (15:15)
[2019-08-08] MEDS ORDERED: CEPH-264 PO (15:46)
[2019-08-08 16:13] VITALS: BP 197/100
== END 2019-08-08 16:21 | disposition home or self-care (01) ==
LOC: ER 13:23
DX: G43.909 Migraine, unspecified, not intractable, without status migrainosus (principal); N30.00 Acute cystitis without hematuria; R11.2 Nausea with vomiting, unspecified; R30.0 Dysuria; F41.9 Anxiety disorder, unspecified; Z90.710 Acquired absence of both cervix and uterus; Z90.89 Acquired absence of other organs; Z88.2 Allergy status to sulfonamides
CPT/HCPCS: 81001; 87086; 96372; 96374; 96375; 99284; J0780; J1200; J1885; J2001

== ENCOUNTER 2019-11-24 04:10 | Emergency (ER) | payer BC ==
[~2019-11-24] VITALS: Ht 162.6 cm; Wt 121.8 kg
[~2019-11-24 04:10] MED LIST changes: +CEPH-264 PO
[2019-11-24 04:42] LABS: BILIRUBIN,URINE SMALL (NEG); CLARITY,URINE TURBID; COLOR,URINE AMBER; NITRITE,URINE NEGATIVE (NEG); PH,URINE 5.5 (<5.0-8.0); PROTEIN,URINE 100 mg/dL (NEG-TRACE)
[2019-11-24 04:52] LABS: SQUAMOUS EPITHELIAL CELL,UR MANY /LPF
[2019-11-24 04:53] LABS: AMORPHOUS SEDIMENT,UR PRESENT /HPF
[2019-11-24] MEDS: hydrOXYzine 25 MG TABLET PO PRN (04:53)
[2019-11-24 04:54] LABS: BACTERIA,URINE MOD /HPF (0-FEW)
--- NOTE | 2019-11-24 05:41 | PHYS DOC ---
Past Medical History Past Medical History: Anemia, Anxiety, Bronchitis, High Cholesterol, Migraines (TASHI PEREZ MD) Past Surgical History: Appendectomy, Hysterectomy (TASHI PEREZ MD) Smoking Status: Never Smoker Alcohol Use: None Drug Use: None (TASHI PEREZ MD) General Adult EDM: Chief Complaint: SHORTNESS OF BREATH HPI: HPI: Patient is a 44 year old female who presents with a panic attack. Patient states that she woke up having a panic attack. This is not happened to her in quite some time. She states that she felt this weird feeling in her legs and then felt short of breath and very anxious. She has been under a lot of stress recently with the recent pandemic. She states that this felt exactly like her previous panic attacks. Patient also states that she has this weird feeling in her lower abdomen and back. She has noticed that she has some hematuria. She is not sure she is drinking enough water or she could have a urinary tract infection. She denies any fever, nausea, vomiting. She only feels mildly anx ious now. She denies any cough, shortness of breath, chest pain, fever. (TASHI PEREZ MD) Review of Systems: Review of Systems: General: Denies fever, chills, sweats, fatigue Eyes: Denies drainage, blurred vision HENT: Denies rhinorrhea, sore throat Respiratory: Denies cough, shortness of breath, wheezing Cardiac: Denies edema, palpitations, chest pain GI: Denies N/V reports abdominal pain, flank pain, hematuria MSK: Denies back pain, neck pain Skin: Denies rash, jaundice Neuro: Denies headache, dizziness Psychiatric: Denies SI/HI reports anxiety (TASHI PEREZ MD) Heart Score: Risk Factors: Risk Factors: DM, Current or recent (<one month) smoker, HTN, HLP, family history of CAD, obesity. Risk Scores: Score 0 - 3: 2.5% MACE over next 6 weeks - Discharge Home Score 4 - 6: 20.3% MACE over next 6 weeks - Admit for Clinical Observation Score 7 - 10: 72.7% MACE over next 6 weeks - Early Invasive Strategies (TASHI PEREZ MD) Current Medications: Current Medications Medications (Trade) Dose Ordered Sig/Preethi Start Time Stop Time Status Last Admin Dose Admin Hydroxyzine HCl (Atarax) 25 mg 1X PRN 5/1/20 04:30 11/24/19 05:00 DC 11/24/19 04:53 25 MG (TASHI PEREZ MD) Allergies: Allergies: Allergies Coded Allergies Type Severity Reaction Last Updated Verified Sulfa (Sulfonamide Antibiotics) Allergy Intermediate HIVES 09/21/18 Yes (TASHI PEREZ MD) Physical Exam: PE: Constitutional: Well developed, well nourished, Cooperative, NAD, non-toxic appearing HEENT: Normocephalic, atraumatic, oropharynx moist, EOMI, PERRL, no drainage from eyes, normal conjunctiva Neck: Supple, normal range of motion, no stridor Cardiovascular: RRR, 2+ radial pulses bilaterally, no edema Respiratory: CTA bilaterally, no respiratory distress, no wheezing/crackles Abdomen: Soft, nontender, nondistended, no masses Skin: Warm, dry, intact Extremities: No obvious deformities Neurologic: Alert and Oriented x3, motor and sensory function grossly normal, no focal deficits Psychologic: Normal affect, normal judgment, normal mood. No SI/HI (TASHI PEREZ MD) Current Patient Data: Labs: Laboratory Tests Test 11/24/19 04:20 Urine Collection Type Unknown Urine Color [place] Urine Clarity Turbid Urine pH 5.5 (<5.0-8.0) Urine Specific Frannie >=1.030 (1.000-1.030) Urine Protein 100 mg/dL (NEG-TRACE) Urine Glucose (UA) Negative mg/dL (NEG) Urine Ketones (Stick) Trace mg/dL (NEG) Urine Blood Moderate (NEG) Urine Nitrite Negative (NEG) Urine Bilirubin Small (NEG) Urine Urobilinogen Dipstick 1.0 mg/dL (0.2 mg/dL) Urine Leukocyte Esterase Small (NEG) Urine RBC 3-5 /HPF (0-2) Urine WBC 5-10 /HPF (0-4) Urine Squamous Epithelial Cells Many /LPF Urine Amorphous Sediment Present /HPF Urine Bacteria Mod /HPF (0-FEW) Urine Mucus Mod /LPF Vital Signs: Vital Signs Date Time Temp Pulse Resp B/P (MAP) Pulse Ox O2 Delivery O2 Flow Rate FiO2 11/24/19 04:25 98.3 73 16 167/83 (111) 97 Room Air 98.3 (TASHI PEREZ MD) EKG: EKG: [] (TASHI PEREZ MD) Radiology/Procedures: Radiology/Procedures: [] (TASHI PEREZ MD) Radiology/Procedures: REASON: hematuria, flank pain PROCEDURE: CT ABDOMEN PELVIS WO CONTRAST Study: CT abdomen/pelvis without intravenous contrast Indication: Hematuria. Flank pain. Comparison: None. Technique: Helical CT imaging performed of the abdomen and pelvis without the use of intravenous contrast. Sagittal and coronal reformats were obtained. One or more of the following individualized dose reduction techniques were utilized for this examination: 1. Automated exposure control 2. Adjustment of the mA and/or kV according to patient size 3. Use of iterative reconstruction technique. Findings: Inherently limited evaluation without intravenous contrast. Chest: Small hiatal hernia. Liver: Unremarkable. Gallbladder/Biliary Tree: Within normal limits. Pancreas: Unremarkable. Spleen: Unremarkable Adrenal Glands: Unremarkable. Kidneys/Ureters/Bladder: Both kidneys are unremarkable. No collecting system dilatation. No nephrolithiasis. Partially decompressed urinary bladder. Stranding along the expected location of the urachus. Reproductive Organs: The uterus is absent. Right ovarian cystic focus measuring up to 3.1 cm. Unremarkable left ovary. Colon: Short segment narrowing of the sigmoid colon, image 163 series 2 favored related to physiologic collapse but not fully assessed without oral contrast. Mild volume well-formed stool maximal and distal to this narrowing. No pericolonic inflammatory change. Appendix: No inflammatory changes at its expected location. Small Bowel: Nonobstructed. Stomach: Unremarkable. Vasculature: Unremarkable. Lymph Nodes: Mildly enlarged iliac chain lymph node on the left, image 185 series 2, measuring 1.3 cm short axis. Peritoneum and Body Wall: Several small fat-containing hernias along the ventral midline in the setting of a surgical scar. No free fluid or air. Bones: No acute fracture or aggressive osseous process. Miscellaneous: None. Impression: 1. No hydroureteronephrosis or nephrolithiasis on either the right or left. The urinary bladder is mostly decompressed limiting assessment. There is some fatty stranding along the urachus which is not overtly atypical but consider correlation with urinalysis to exclude a urinary tract infection. 2. Short segment narrowing of the sigmoid colon favored physiologic collapse noting that the gastrointestinal tract is not fully evaluated given absence of oral contrast. 3. Right ovarian cystic focus measuring up to 3.1 cm. Given patient age this is not an unusual finding. 4. Several ventral midline fat-containing hernias which are small in size and without complicating features. (OFE LEE DO) Course & Med Decision Making: Course & Med Decision Making Pertinent Labs and Imaging studies reviewed. (See chart for details) Patient is a 44-year-old female who presents the emergency room after having a panic attack. Patient was given hydroxyzine for anxiety. She is overall well- appearing. She also states she is having this weird feeling and her lower belly and having pain in her back. She is noticed hematuria. UA does not show any white blood cells but does show blood. CT abdomen pelvis without contrast will be ordered to rule out kidney stone. (TASHI PEREZ MD) Dragon Disclaimer: Dragon Disclaimer: This electronic medical record was generated, in whole or in part, using a voice recognition dictation system. (TASHI PEREZ MD) Departure Departure Impression: Primary Impression: Panic anxiety syndrome Additional Impression: Flank pain Disposition: 01 HOME, SELF-CARE Condition: STABLE Referrals: DALY PORTER MD (PCP) Patient Instructions: Anxiety and Panic Attacks, Flank Pain Scripts Hydroxyzine Hcl (HYDROXYZINE HCL) 25 Mg Tablet 1 TAB PO PRN Q6-8HRS for ANXIETY, #30 TAB Prov: OFE LEE DO 11/24/19 TASHI PEREZ MD November 24, 2019 05:41 OFE LEE DO November 24, 2019 06:21
--- NOTE | 2019-11-24 06:09 | RAD ---
Study: CT abdomen/pelvis without intravenous contrast Indication: Hematuria. Flank pain. Comparison: None. Technique: Helical CT imaging performed of the abdomen and pelvis without the use of intravenous contrast. Sagittal and coronal reformats were obtained. One or more of the following individualized dose reduction techniques were utilized for this examination: 1. Automated exposure control 2. Adjustment of the mA and/or kV according to patient size 3. Use of iterative reconstruction technique. Findings: Inherently limited evaluation without intravenous contrast. Chest: Small hiatal hernia. Liver: Unremarkable. Gallbladder/Biliary Tree: Within normal limits. Pancreas: Unremarkable. Spleen: Unremarkable Adrenal Glands: Unremarkable. Kidneys/Ureters/Bladder: Both kidneys are unremarkable. No collecting system dilatation. No nephrolithiasis. Partially decompressed urinary bladder. Stranding along the expected location of the urachus. Reproductive Organs: The uterus is absent. Right ovarian cystic focus measuring up to 3.1 cm. Unremarkable left ovary. Colon: Short segment narrowing of the sigmoid colon, image 163 series 2 favored related to physiologic collapse but not fully assessed without oral contrast. Mild volume well-formed stool maximal and distal to this narrowing. No pericolonic inflammatory change. Appendix: No inflammatory changes at its expected location. Small Bowel: Nonobstructed. Stomach: Unremarkable. Vasculature: Unremarkable. Lymph Nodes: Mildly enlarged iliac chain lymph node on the left, image 185 series 2, measuring 1.3 cm short axis. Peritoneum and Body Wall: Several small fat-containing hernias along the ventral midline in the setting of a surgical scar. No free fluid or air. Bones: No acute fracture or aggressive osseous process. Miscellaneous: None. Impression: 1. No hydroureteronephrosis or nephrolithiasis on either the right or left. The urinary bladder is mostly decompressed limiting assessment. There is some fatty stranding along the urachus which is not overtly atypical but consider correlation with urinalysis to exclude a urinary tract infection. 2. Short segment narrowing of the sigmoid colon favored physiologic collapse noting that the gastrointestinal tract is not fully evaluated given absence of oral contrast. 3. Right ovarian cystic focus measuring up to 3.1 cm. Given patient age this is not an unusual finding. 4. Several ventral midline fat-containing hernias which are small in size and without complicating features. Electronically signed by: CODY QUIROZ MD (11/24/2019 6:07 AM) [id number]
[2019-11-24 06:16] VITALS: BP 149/81
[2019-11-24] MEDS ORDERED: HYDR25TA PO (06:25)
== END 2019-11-24 06:27 | disposition home or self-care (01) ==
LOC: ER 04:10
DX: F41.0 Panic disorder [episodic paroxysmal anxiety] (principal); R06.02 Shortness of breath; R31.9 Hematuria, unspecified; R10.30 Lower abdominal pain, unspecified; R11.2 Nausea with vomiting, unspecified; E78.00 Pure hypercholesterolemia, unspecified; G43.909 Migraine, unspecified, not intractable, without status migrainosus; Z88.2 Allergy status to sulfonamides
CPT/HCPCS: 74176; 81001; 99285-25

== ENCOUNTER → 2020-01-04 | Outpatient (CLI) | payer BC ==
[~2020-01-04] MED LIST changes: +HYDR25TA PO
--- NOTE | 2020-01-04 08:34 | RAD ---
EXAM: Renal sonogram. HISTORY: Hematuria. TECHNIQUE: Sonographic imaging of the kidneys and bladder was performed. COMPARISON: CT dated 11/23/2009. FINDINGS: The kidneys are normal in size. There is a 1.6 cm cyst with posterior through transmission within the left kidney. No solid renal lesion or hydronephrosis seen. The prevoid bladder volume is 31 cc. The ureteral jets are both seen. IMPRESSION: 1. 1.6 cm left renal cyst. 2. Otherwise, sonographically unremarkable kidneys. Electronically signed by: Renae Poole MD (01/04/2020 8:31 AM) [id number]
== END ==
LOC: US 11:37
PROVIDERS: ATTEND Family Medicine
DX: N28.1 Cyst of kidney, acquired (principal); R31.9 Hematuria, unspecified
CPT/HCPCS: 76770

== ENCOUNTER 2021-09-10 15:25 | Emergency (ER) | payer SELFPAY ==
[~2021-09-10] VITALS: Ht 162.6 cm; Wt 115.4 kg
[~2021-09-10 15:25] MED LIST changes: +CYCL10TA19 PO; -CYCL10TA2 PO; -POLY17PO28 PO; +POLY17PO52 PO
[2021-09-10 15:42] VITALS: BP 139/74
--- NOTE | 2021-09-10 16:07 | PHYS DOC ---
Past Medical History Past Medical History: Anemia, Anxiety, Bronchitis, High Cholesterol, Migraines Past Surgical History: Appendectomy, Hysterectomy Smoking Status: Never Smoker Alcohol Use: None Drug Use: None General Adult EDM: Chief Complaint: PAIN ON URINATION HPI: HPI: Patient is a 46 year old female who presents to the emergency department complaining of burning with urination. Patient reports burning while urinating and experiencing urinary pressure, does not see blood in her urine however notices the toilet paper is light pink after she wipes. Patient reports symptoms started about 1 week ago, also reports noticing lower back discomfort that started yesterday. Patient states she had a partial hysterectomy 3 years ago, denies numbness or tingling to her genitals or buttocks area, denies numbness or tingling down her extremities, denies injury to her low back. Patient states the symptoms are similar to previous urinary tract infections. Patient states her last urinary tract infection was over a year ago. Patient denies vaginal discharge, rashes or sores to her vagina. Denies STI concerns. Denies recent fever or chills, denies abdominal pain, nausea, vomiting, or diarrhea. Patient denies chest pains, nasal or chest congestion, denies sore throat, dizziness, headaches, syncopal or near syncopal episodes, denies increased thirst or increased urination. Patient denies other physical complaints or physical concerns. Review of Systems: Review of Systems: 14 body systems of review of systems have been reviewed. See HPI for pertinent positives and negative responses, otherwise all other systems are negative, nonpertinent or noncontributory. Constitutional: Negative except as outlined in HPI above. Skin: Negative except as outlined in HPI above. Eyes: Negative except as outlined in HPI above. HENT: Negative except as outlined in HPI above. Respiratory: Negative except as outlined in HPI above. Cardiovascular: Negative except as outlined in HPI above. GI: Negative except as outlined in HPI above. : Negative except as outlined in HPI above. Musculoskeletal: Negative except as outlined in HPI above. Integument: Negative except as outlined in HPI above. Neurologic: Negative except as outlined in HPI above. Endocrine: Negative except as outlined in HPI above. Lymphatic: Negative except as outlined in HPI above. Psychiatric: Negative except as outlined in HPI above. Heart Score: C/O Chest Pain: No Risk Factors: Risk Factors: DM, Current or recent (<one month) smoker, HTN, HLP, family history of CAD, obesity. Risk Scores: Score 0 - 3: 2.5% MACE over next 6 weeks - Discharge Home Score 4 - 6: 20.3% MACE over next 6 weeks - Admit for Clinical Observation Score 7 - 10: 72.7% MACE over next 6 weeks - Early Invasive Strategies Allergies: Allergies: Allergies Coded Allergies Type Severity Reaction Last Updated Verified Sulfa (Sulfonamide Antibiotics) Allergy Intermediate HIVES 09/21/18 Yes Physical Exam: PE: Constitutional: Well developed, well nourished, no acute distress, non-toxic appearance. 46-year-old female in no apparent distress. HENT: Normocephalic, atraumatic. Eyes: Conjunctiva normal, no discharge. Neck: Normal range of motion, no stridor. Cardiovascular: No cyanosis appreciated, distal cap refill less than 2 seconds. Lungs & Thorax: Patient is in no respiratory distress, normal work of breathing. Abdomen: Nontender, no abnormalities noted. Abdomen soft, round, obese. Skin: Warm, dry, no erythema, no rash. Back: No tenderness, no deformities. No left-sided or right-sided CVA TTP. Extremities: No tenderness, no cyanosis, no clubbing, ROM intact, no edema. Neurologic: Alert and oriented X 3, normal motor function, normal sensory function, no focal deficits noted. Psychologic: Affect normal, judgement normal, mood normal. Current Patient Data: Labs: Laboratory Tests Test 09/10/21 15:33 Urine Collection Type Unknown Urine Color Yellow Urine Clarity Hazy Urine pH 5.5 Urine Specific [place] 1.025 Urine Protein Negative mg/dL Urine Glucose (UA) Negative mg/dL Urine Ketones (Stick) Negative mg/dL Urine Blood Small Urine Nitrite Negative Urine Bilirubin Negative Urine Urobilinogen Dipstick 0.2 mg/dL Urine Leukocyte Esterase Moderate Urine RBC Occ /HPF Urine WBC >40 /HPF Urine Squamous Epithelial Cells Many /LPF Urine Bacteria Many /HPF Urine Mucus Marked /LPF Urine Trichomonas Present EKG: EKG: [] Radiology/Procedures: Radiology/Procedures: [] Course & Med Decision Making: Course & Med Decision Making Pertinent Labs and Imaging studies reviewed. (See chart for details) 46-year-old female, vital signs reviewed, presents to the emergency department concerning burning with urination for the past week. Physical examination is unremarkable, will send urinalysis assay to lab. Patient's urine is infected, there was trichomonas noted in urine, discussed findings with patient, patient denies vaginal discharge but is now concerned about STIs, will treat prophylactically with Rocephin IM and prescription for doxycycline 100 mg twice daily x7 days, will treat abnormal urinalysis with Keflex twice daily x7 days, metronidazole 2 g p.o. x1, patient is amenable to ED planning, discussed safe sex practices, follow-up with primary care soon for reevaluation of urinary symptoms, return to ER precautions or concerns were reviewed, patient gave verbal understanding of and is amenable to ED discharge planning Discussed with the patient all findings and diagnostic testing as well as the n eed to follow-up with their primary care provider for further evaluation and treatment or return to the ED if any new or worsening symptoms. Strict return precautions were also discussed at length, the patient voiced understanding and agreement with the discharge planning. The patient was nontoxic in appearance, in no apparent distress, and hemodynamically stable at the time of disposition. Dragon Disclaimer: vWise Disclaimer: This electronic medical record was generated, in whole or in part, using a voice recognition dictation system. Departure Departure Impression: Primary Impression: Urinary tract infection Qualified Codes: N39.0 - Urinary tract infection, site not specified; R31.9 - Hematuria, unspecified Additional Impression: Trichomonas infection Disposition: HOME / SELF CARE / HOMELESS Condition: GOOD Referrals: DALY PORTER MD (PCP) Patient Instructions: Sexually Transmitted Disease, Trichomoniasis, Urinary Tract Infection Additional Instructions: You were seen today in the emergency department for burning with urination. Your urinalysis is concerning for a urinary tract infection, as we discussed there is also trichomonas found in your urine. You and I made a joint decision to prophylactically treat for gonorrhea chlamydia as well, you are given 500 mg Rocephin intramuscular injection. I am prescribing you Keflex 500 mg that you will take twice a day for 7 days for urinary tract infection signs and symptoms, doxycycline 100 mg twice a day for 7 days to cover for sexually transmitted infection, also metronidazole tablets 2 g you will take all at once for the trichomonas infection. Please do not drink alcohol while taking antibiotics. Please follow-up with your primary care doctor in 1 week for a reevaluation of your urine to ensure the infectious process has been resolved. Please use barrier protection sex to help reduce the spread of sexually transmitted diseases. Return to the emergency department for worsening symptoms or other concerns. Thank you for visiting our Emergency Department. It was a pleasure taking care of you today in the emergency department and we appreciate you trusting us with your care. If any additional problems come up don't hesitate to return to visit us. Please follow up with your primary care provider so they can plan additional care if needed and know about the problem that you had. If symptoms worsen come back to the Emergency Department. Any concerning symptoms that start such as chest pain, shortness of air, weakness or numbness on one side of the body, running high fevers or any other concerning symptoms return to the ER. Scripts Cephalexin (CEPHALEXIN) 500 Mg Tablet 1 TAB PO BID for UTI for 7 Days, #14 TAB 0 Refills Prov: DARIN QUIROZ APRN 09/10/21 Doxycycline Hyclate (DOXYCYCLINE HYCLATE) 100 Mg Capsule 1 CAP PO BID for STI, #14 CAP 0 Refills Prov: DARIN QUIROZ APRN 09/10/21 Metronidazole (METRONIDAZOLE) 500 Mg Tablet 4 TAB PO ONCE for sti for 1 Day, #4 TAB 0 Refills Take all 4 tablets once. Prov: DARIN QUIROZ APRN 09/10/21 DARIN QUIROZ APRN Sep 10, 2021 16:07
[2021-09-10 16:19] LABS: BILIRUBIN,URINE NEGATIVE (NEG); COLOR,URINE YELLOW; NITRITE,URINE NEGATIVE (NEG); PH,URINE 5.5 (<5.0-8.0); PROTEIN,URINE NEGATIVE (NEG-TRACE); UROBILINOGEN,URINE 0.2 mg/dL (0.2 mg/dL)
[2021-09-10 16:23] LABS: BACTERIA,URINE MANY /HPF (0-FEW); CLARITY,URINE HAZY
[2021-09-10 16:24] LABS: WBC,URINE >40 /HPF (0-4)
[2021-09-10 16:26] LABS: RBC,URINE OCC /HPF (0-2)
[2021-09-10 16:27] LABS: TRICHOMONAS,URINE PRESENT
[2021-09-10] MEDS ORDERED: cefTRIAXone IM 500 MG VIAL. IM ONE (17:00)
[2021-09-10] MEDS ORDERED: CEPH500T PO (17:11)
[2021-09-10] MEDS ORDERED: METR-34 PO (17:11)
[2021-09-10] MEDS ORDERED: DOXY100C3 PO (17:11)
== END 2021-09-10 17:52 | disposition home or self-care (01) ==
LOC: ER 15:25
DX: N39.0 Urinary tract infection, site not specified (principal); R31.9 Hematuria, unspecified; A59.9 Trichomoniasis, unspecified; E78.00 Pure hypercholesterolemia, unspecified; G43.909 Migraine, unspecified, not intractable, without status migrainosus; Z90.89 Acquired absence of other organs; Z90.710 Acquired absence of both cervix and uterus; Z88.2 Allergy status to sulfonamides
CPT/HCPCS: 81001; 87086; 87491; 87591; 96372; 99283; J0696